=== PATIENT | female | born 1935 | race Caucasian/White ===

== ENCOUNTER 2017-04-08 11:52 | Inpatient (IN) | payer MEDICARE, OTHER ==
[2017-04-08] MEDS ORDERED: ONDANSETRON 4 MG INJ ×2 (12:08→12:46)
[2017-04-08] MEDS ORDERED: morphine 4 MG/ML VIAL (12:09)
[2017-04-08 12:12] LABS: ADD MAN DIFF? NO
[2017-04-08] MEDS: morphine 4 MG/ML VIAL IV (12:14)
[2017-04-08] MEDS: ONDANSETRON 4 MG INJ IV (12:14)
[2017-04-08 12:17] LABS: WHITE BLOOD COUNT 6.6 10^3/ul (4.8-10.8)
[2017-04-08 12:17] LABS: BASOPHILS % 0.5 % (0.0-2.0); EOSINOPHILS # 0.1 10^3/ul (0.0-0.5); EOSINOPHILS % 1.4 % (0.0-7.0); HEMOGLOBIN 13.3 g/dl (12.0-16.0); LYMPHOCYTES # 3.9 10^3/ul (0.8-2.9); LYMPHOCYTES % 58.6 % (15.0-51.0); MEAN CORPUSCULAR HEMOGLOBIN 30.3 pg (29.0-33.0); MEAN CORPUSCULAR VOLUME 86.6 fl (82.0-101.0); MEAN PLATELET VOLUME 10.2 fl (7.4-10.4); MONOCYTE # 0.7 10^3/ul (0.3-0.9); MONOCYTES % 9.9 % (0.0-11.0); NEUTROPHILS % 29.4 % (39.0-77.0); PLATELET COUNT 202 10^3/UL (140-415); RED BLOOD COUNT 4.39 10^6/ul (4.20-5.40); RED CELL DISTRIBUTION WIDTH 12.5 % (11.5-14.5)
[2017-04-08] MEDS ORDERED: NITROGLYCERIN (IC) 100 MCG/ML INJ (12:31)
[2017-04-08] MEDS ORDERED: IODIXANOL LOCM 50 ML BTL (12:31)
[2017-04-08] MEDS ORDERED: HEPARIN 1000 UNITS/ML 10 ML INJ (12:31)
[2017-04-08] MEDS ORDERED: VERAPAMIL 5 MG INJ ×2 (12:31→13:33)
[2017-04-08 12:35] LABS: ANION GAP 16 (8-16); BLOOD UREA NITROGEN 23 mg/dl (7-20); CALCIUM 9.3 mg/dl (8.4-10.2); CARBON DIOXIDE 22 mmol/L (21-31); CHLORIDE 109 mmol/L (97-110); CREATININE 1.34 mg/dl (0.44-1.00); GLUCOSE 149 mg/dl (70-220); SODIUM 143 mmol/L (135-144)
[2017-04-08] MEDS ORDERED: DIPHENHYDRAMINE 50 MG INJ (12:38)
[2017-04-08] MEDS ORDERED: METHYLPREDNISOLONE 125 MG INJ (12:38)
[2017-04-08 12:50] LABS: TROPONIN-I < 0.012 ng/ml (0.00-0.12)
[2017-04-08] MEDS ORDERED: FENTAnyl 50 MCG/ML VIAL (12:53)
[2017-04-08] MEDS ORDERED: MIDAZOLAM 1 MG/ML 2 ML INJ (12:53)
[2017-04-08] MEDS ORDERED: IODIXANOL LOCM 100 ML BTL ×4 (12:54→14:03)
[2017-04-08] MEDS ORDERED: ONDANSETRON 4 MG INJ IV ×2 (13:30→17:30)
[2017-04-08] MEDS ORDERED: ACETAMINOPHEN 325 MG TAB PO (13:30)
[2017-04-08] MEDS ORDERED: EPTIFIBATIDE 100 ML IV (13:40)
[2017-04-08] MEDS ORDERED: EPTIFIBATIDE 10 ML (13:40)
[2017-04-08 14:14] LABS: INR 0.97
[2017-04-08 14:15] LABS: PARTIAL THROMBOPLASTIN TIME 25.9 Sec (25.0-35.0)
[2017-04-08] MEDS ORDERED: ALTEPLASE (CATHFLO) 2 MG INJ CATHETER (14:30)
[2017-04-08] MEDS ORDERED: TICAGRELOR 90 MG TABLET (14:32)
[2017-04-08] MEDS: EPTIFIBATIDE 100 ML IV ×2 (15:37→17:37)
[2017-04-08] MEDS: HEPARIN 1000 UNITS/ML 10 ML INJ IV (16:00)
[2017-04-08] MEDS: SOD CHLORIDE 0.9% 1,000 ML IV (16:31)
[2017-04-08] MEDS: morphine 2 MG INJ IV ×2 (17:39→23:59)
[2017-04-08 18:36] LABS: ADD MAN DIFF? NO
[2017-04-08 18:39] LABS: BASOPHILS % 0.1 % (0.0-2.0); EOSINOPHILS % 0.1 % (0.0-7.0); HEMATOCRIT 39.2 % (37.0-47.0); LYMPHOCYTES # 0.6 10^3/ul (0.8-2.9); LYMPHOCYTES % 7.2 % (15.0-51.0); MEAN CORPUSCULAR HEMOGLOBIN 29.7 pg (29.0-33.0); MEAN CORPUSCULAR HGB CONC 33.2 g/dl (32.0-37.0); MEAN CORPUSCULAR VOLUME 89.7 fl (82.0-101.0); MEAN PLATELET VOLUME 10.5 fl (7.4-10.4); MONOCYTE # 0.1 10^3/ul (0.3-0.9); MONOCYTES % 1.1 % (0.0-11.0); PLATELET COUNT 201 10^3/UL (140-415); RED BLOOD COUNT 4.37 10^6/ul (4.20-5.40)
[2017-04-08 18:39] LABS: WHITE BLOOD COUNT 8.8 10^3/ul (4.8-10.8)
[2017-04-08 19:55] LABS: CK INDEX 6.2; CREATINE KINASE 3104 IU/L (23-200)
[2017-04-08] MEDS: ATORVASTATIN 40 MG TAB PO (20:34)
[2017-04-08] MEDS: TICAGRELOR 90 MG TABLET PO ×2 (20:35→21:01)
[2017-04-08] MEDS: METOPROLOL 25 MG TAB PO (20:35)
[2017-04-09 01:55] LABS: CK INDEX 7.6; CREATINE KINASE 3154 IU/L (23-200)
[2017-04-09 05:12] LABS: ADD MAN DIFF? NO
[2017-04-09 05:23] LABS: WHITE BLOOD COUNT 11.8 10^3/ul (4.8-10.8)
[2017-04-09 05:23] LABS: BASOPHILS % 0.1 % (0.0-2.0); HEMATOCRIT 36.2 % (37.0-47.0); HEMOGLOBIN 11.7 g/dl (12.0-16.0); LYMPHOCYTES # 0.6 10^3/ul (0.8-2.9); LYMPHOCYTES % 5.3 % (15.0-51.0); MEAN CORPUSCULAR HEMOGLOBIN 29.1 pg (29.0-33.0); MEAN CORPUSCULAR HGB CONC 32.3 g/dl (32.0-37.0); MEAN PLATELET VOLUME 10.8 fl (7.4-10.4); MONOCYTE # 0.4 10^3/ul (0.3-0.9); MONOCYTES % 3.2 % (0.0-11.0); NEUTROPHIL # 10.8 10^3/ul (1.6-7.5); PLATELET COUNT 203 10^3/UL (140-415); RED BLOOD COUNT 4.02 10^6/ul (4.20-5.40); RED CELL DISTRIBUTION WIDTH 13.3 % (11.5-14.5)
[2017-04-09 05:42] LABS: ANION GAP 19 (8-16); BLOOD UREA NITROGEN 22 mg/dl (7-20); CALCIUM 8.8 mg/dl (8.4-10.2); CARBON DIOXIDE 20 mmol/L (21-31); CHLORIDE 111 mmol/L (97-110); CHOL/HDL RATIO 5.7 RATIO; CHOLESTEROL 218 mg/dl (100-200); CREATININE 1.35 mg/dl (0.44-1.00); GLUCOSE 168 mg/dl (70-220); HDL CHOLESTEROL 38 mg/dl (33-92); LDL CHOLESTEROL,CALCULATED 146 mg/dl; POTASSIUM 4.7 mmol/L (3.5-5.1); SODIUM 145 mmol/L (135-144); TRIGLYCERIDES 170 mg/dl (0-149)
[2017-04-09] MEDS: morphine 2 MG INJ IV ×4 (05:53→23:41)
[2017-04-09] MEDS: FUROSEMIDE 40 MG TAB PO (08:19)
[2017-04-09] MEDS: METOPROLOL 25 MG TAB PO ×2 (08:20→21:00)
[2017-04-09] MEDS: TICAGRELOR 90 MG TABLET PO ×2 (08:42→19:57)
[2017-04-09] MEDS: LEVOTHYROXINE 88 MCG TAB PO (09:20)
[2017-04-09 12:08] LABS: HEMOGLOBIN A1C 5.7 % (0-5.9)
[2017-04-09] MEDS: ATORVASTATIN 40 MG TAB PO (19:52)
[2017-04-09] MEDS: OXYCODONE/ACETAMINOPHEN (5/325) TAB PO (22:20)
[2017-04-10] MEDS: morphine 2 MG INJ IV (04:15)
[2017-04-10] MEDS: OXYCODONE/ACETAMINOPHEN (5/325) TAB PO ×3 (04:15→21:14)
[2017-04-10] MEDS: LEVOTHYROXINE 88 MCG TAB PO (05:28)
[2017-04-10 06:46] LABS: ADD MAN DIFF? NO
[2017-04-10 07:24] LABS: BASOPHILS % 0.1 % (0.0-2.0); EOSINOPHILS % 0.1 % (0.0-7.0); HEMATOCRIT 33.7 % (37.0-47.0); HEMOGLOBIN 11.2 g/dl (12.0-16.0); LYMPHOCYTES # 1.1 10^3/ul (0.8-2.9); MEAN CORPUSCULAR HEMOGLOBIN 29.9 pg (29.0-33.0); MEAN CORPUSCULAR HGB CONC 33.2 g/dl (32.0-37.0); MEAN CORPUSCULAR VOLUME 89.9 fl (82.0-101.0); MEAN PLATELET VOLUME 11.4 fl (7.4-10.4); MONOCYTE # 1.4 10^3/ul (0.3-0.9); MONOCYTES % 7.8 % (0.0-11.0); NEUTROPHIL # 15.5 10^3/ul (1.6-7.5); NEUTROPHILS % 85.3 % (39.0-77.0); PLATELET COUNT 188 10^3/UL (140-415); RED BLOOD COUNT 3.75 10^6/ul (4.20-5.40); RED CELL DISTRIBUTION WIDTH 13.6 % (11.5-14.5)
[2017-04-10 07:24] LABS: WHITE BLOOD COUNT 18.1 10^3/ul (4.8-10.8)
[2017-04-10 07:45] LABS: ANION GAP 16 (8-16); BLOOD UREA NITROGEN 28 mg/dl (7-20); CARBON DIOXIDE 24 mmol/L (21-31); CHLORIDE 111 mmol/L (97-110); CREATININE 1.51 mg/dl (0.44-1.00); GLUCOSE 139 mg/dl (70-220); MAGNESIUM 1.9 mg/dl (1.7-2.5); PHOSPHORUS 2.9 mg/dl (2.5-4.9); POTASSIUM 4.2 mmol/L (3.5-5.1); SODIUM 147 mmol/L (135-144)
[2017-04-10] MEDS: FUROSEMIDE 40 MG TAB PO (08:36)
[2017-04-10] MEDS: FAMOTIDINE 20 MG TAB PO ×2 (08:37→21:09)
[2017-04-10] MEDS: VALSARTAN 80 MG TAB PO (08:38)
[2017-04-10] MEDS: METOPROLOL (XL) 25 MG TAB PO (08:39)
[2017-04-10] MEDS: TICAGRELOR 90 MG TABLET PO ×2 (08:46→21:11)
[2017-04-10] MEDS: FUROSEMIDE 40 MG INJ IV (16:14)
[2017-04-10] MEDS ORDERED: IODIXANOL LOCM 100 ML BTL (16:34)
[2017-04-10] MEDS ORDERED: EPTIFIBATIDE 10 ML (16:35)
[2017-04-10 17:15] LABS: AADO2 Arterial 66.5 mmHg (7.0-24.0); Arterial Blood Gas Oxygen Sat 88.9 mmHG (95.0-100.0); Arterial COHb 0.3 % (0.0-3.0); Arterial Fraction of Oxyhgb 88.5 % (93.0-99.0); Arterial HCO3 20.1 mmol/L (22.0-26.0); Arterial MetHb 0.1 % (0.0-1.5); Arterial Total Hemglobin 11.9 g/dl (12.0-18.0); Arterial pCO2 26.8 mmhg (35-45); MODE ROOM AIR; Site Right Brachial
[2017-04-10] MEDS: ATORVASTATIN 40 MG TAB PO (21:09)
[2017-04-10 22:43] LABS: CREATININE,URINE RANDOM 144.29 mg/dl (20-320)
[2017-04-10 22:45] LABS: SODIUM,URINE RANDOM < 13 mmol/L (30-90)
[2017-04-10 23:20] LABS: ADD UMIC YES; UR ASCORBIC ACID NEGATIVE (NEGATIVE); UR BACTERIA FEW /HPF (NONE SEEN); UR BILIRUBIN (Dip) NEGATIVE (NEGATIVE); UR BLOOD (Dip) NEGATIVE (NEGATIVE); UR CLARITY SLIGHTLY CLOUDY (CLEAR); UR COLOR YELLOW (YELLOW); UR GLUCOSE (Dip) NEGATIVE (NEGATIVE); UR KETONES (Dip) NEGATIVE (NEGATIVE); UR LEUKOCYTE ESTERASE (Dip) 3+ Leu/ul (NEGATIVE); UR NITRITE (Dip) NEGATIVE (NEGATIVE); UR RBC 2 /HPF (0-5); UR SPECIFIC GRAVITY (Dip) 1.021 (1.003-1.030); UR SQUAMOUS EPITHELIAL CELL FEW /HPF (FEW); UR TOTAL PROTEIN (Dip) NEGATIVE (NEGATIVE); UR UROBILINOGEN (Dip) NEGATIVE (NEGATIVE); UR WBC 22 /HPF (0-5)
[2017-04-11] MEDS: OXYCODONE/ACETAMINOPHEN (5/325) TAB PO ×2 (02:55→19:54)
[2017-04-11] MEDS: LEVOTHYROXINE 88 MCG TAB PO (05:14)
[2017-04-11 07:08] LABS: ADD MAN DIFF? NO
[2017-04-11 07:15] LABS: BASOPHILS % 0.2 % (0.0-2.0); EOSINOPHILS % 0.1 % (0.0-7.0); HEMOGLOBIN 10.3 g/dl (12.0-16.0); LYMPHOCYTES # 1.1 10^3/ul (0.8-2.9); LYMPHOCYTES % 9.1 % (15.0-51.0); MEAN CORPUSCULAR HEMOGLOBIN 29.9 pg (29.0-33.0); MEAN CORPUSCULAR HGB CONC 33.2 g/dl (32.0-37.0); MEAN CORPUSCULAR VOLUME 90.1 fl (82.0-101.0); MEAN PLATELET VOLUME 11.2 fl (7.4-10.4); NEUTROPHIL # 10.2 10^3/ul (1.6-7.5); PLATELET COUNT 158 10^3/UL (140-415); RED BLOOD COUNT 3.44 10^6/ul (4.20-5.40); RED CELL DISTRIBUTION WIDTH 13.4 % (11.5-14.5)
[2017-04-11 07:15] LABS: WHITE BLOOD COUNT 12.5 10^3/ul (4.8-10.8)
[2017-04-11 07:34] LABS: ALANINE AMINOTRANSFERASE 86 IU/L (13-69); ALBUMIN 3.1 g/dl (3.3-4.9); ALBUMIN/GLOBULIN RATIO 1.14; ALKALINE PHOSPHATASE 57 IU/L (42-121); ANION GAP 14 (8-16); ASPARTATE AMINO TRANSFERASE 205 IU/L (15-46); BILIRUBIN,INDIRECT 1.3 mg/dl (0-1.1); BILIRUBIN,TOTAL 1.3 mg/dl (0.2-1.3); BLOOD UREA NITROGEN 33 mg/dl (7-20); CALCIUM 8.8 mg/dl (8.4-10.2); CARBON DIOXIDE 25 mmol/L (21-31); CHLORIDE 111 mmol/L (97-110); CREATININE 1.55 mg/dl (0.44-1.00); GLUCOSE 114 mg/dl (70-220); SODIUM 146 mmol/L (135-144); TOTAL PROTEIN 5.8 g/dl (6.1-8.1)
[2017-04-11 07:36] LABS: PHOSPHORUS 3.1 mg/dl (2.5-4.9)
[2017-04-11] MEDS: FAMOTIDINE 20 MG TAB PO ×2 (09:15→20:14)
[2017-04-11] MEDS: TICAGRELOR 90 MG TABLET PO ×2 (09:22→20:16)
[2017-04-11] MEDS: METOPROLOL (XL) 25 MG TAB PO (11:22)
[2017-04-11] MEDS: FUROSEMIDE 40 MG TAB PO (11:22)
[2017-04-11] MEDS ORDERED: FUROSEMIDE 40 MG INJ IV (13:30)
[2017-04-11] MEDS ORDERED: PIPER-TAZO 3.375 GM IV (PMX) 100 ML IVPB (18:00)
[2017-04-11] MEDS: INFLUENZA VIRUS VACCINE 0.5 ML SYG IM* (20:13)
[2017-04-11] MEDS: MEROPENEM 1 GM/50ML(PMX) 50 ML IVPB ×2 (20:14→22:04)
[2017-04-11] MEDS: ATORVASTATIN 40 MG TAB PO (20:14)
[2017-04-11] MEDS: CEFEPIME 1GM/50 ML IVPB (22:03)
[2017-04-12] MEDS: OXYCODONE/ACETAMINOPHEN (5/325) TAB PO ×2 (04:04→21:32)
[2017-04-12] MEDS: ALBUTEROL 0.083% (NEB) 2.5 MG/3 ML AMP HHN (05:40)
[2017-04-12] MEDS: LEVOTHYROXINE 88 MCG TAB PO (06:16)
[2017-04-12 06:44] LABS: ADD MAN DIFF? NO
[2017-04-12 06:57] LABS: BASOPHILS % 0.2 % (0.0-2.0); EOSINOPHILS # 0.1 10^3/ul (0.0-0.5); EOSINOPHILS % 0.7 % (0.0-7.0); HEMATOCRIT 31.9 % (37.0-47.0); HEMOGLOBIN 10.4 g/dl (12.0-16.0); LYMPHOCYTES # 1.5 10^3/ul (0.8-2.9); LYMPHOCYTES % 14.1 % (15.0-51.0); MEAN CORPUSCULAR HEMOGLOBIN 29.5 pg (29.0-33.0); MEAN CORPUSCULAR HGB CONC 32.6 g/dl (32.0-37.0); MEAN CORPUSCULAR VOLUME 90.6 fl (82.0-101.0); MEAN PLATELET VOLUME 11.5 fl (7.4-10.4); MONOCYTE # 0.9 10^3/ul (0.3-0.9); MONOCYTES % 8.2 % (0.0-11.0); NEUTROPHIL # 8.1 10^3/ul (1.6-7.5); NEUTROPHILS % 76.2 % (39.0-77.0); PLATELET COUNT 180 10^3/UL (140-415); RED BLOOD COUNT 3.52 10^6/ul (4.20-5.40); RED CELL DISTRIBUTION WIDTH 13.4 % (11.5-14.5)
[2017-04-12 06:57] LABS: WHITE BLOOD COUNT 10.6 10^3/ul (4.8-10.8)
[2017-04-12 07:19] LABS: ALANINE AMINOTRANSFERASE 68 IU/L (13-69); ALBUMIN 3.4 g/dl (3.3-4.9); ALBUMIN/GLOBULIN RATIO 1.13; ALKALINE PHOSPHATASE 60 IU/L (42-121); ANION GAP 16 (8-16); ASPARTATE AMINO TRANSFERASE 115 IU/L (15-46); BLOOD UREA NITROGEN 29 mg/dl (7-20); CALCIUM 8.8 mg/dl (8.4-10.2); CARBON DIOXIDE 26 mmol/L (21-31); CHLORIDE 107 mmol/L (97-110); CREATININE 1.61 mg/dl (0.44-1.00); GLUCOSE 158 mg/dl (70-220); POTASSIUM 3.4 mmol/L (3.5-5.1); SODIUM 146 mmol/L (135-144); TOTAL PROTEIN 6.4 g/dl (6.1-8.1)
[2017-04-12 07:20] LABS: PHOSPHORUS 3.2 mg/dl (2.5-4.9)
[2017-04-12 07:20] LABS: MAGNESIUM 2.1 mg/dl (1.7-2.5)
[2017-04-12] MEDS: POTASSIUM CHLORIDE (SR) 20 MEQ TAB PO (08:48)
[2017-04-12] MEDS: MEROPENEM 1 GM/50ML(PMX) 50 ML IVPB ×2 (08:48→21:32)
[2017-04-12] MEDS: FAMOTIDINE 20 MG TAB PO ×2 (08:48→21:32)
[2017-04-12] MEDS: METOPROLOL (XL) 25 MG TAB PO (09:00)
[2017-04-12] MEDS: TICAGRELOR 90 MG TABLET PO ×2 (09:08→21:39)
[2017-04-12] MEDS: LEVALBUTEROL (NEB) 0.63 MG/3 ML AMP HHN ×3 (10:08→23:51)
[2017-04-12] MEDS ORDERED: VANCOMYCIN IV PER PHARMACY XX (15:00)
[2017-04-12] MEDS: VANCOMYCIN 1.25 GM in SOD CHLORIDE 0.9% 250 ML IVPB (16:13)
[2017-04-12] MEDS: ATORVASTATIN 40 MG TAB PO (21:32)
[2017-04-13] MEDS: FUROSEMIDE 20 MG INJ IV (01:06)
[2017-04-13] MEDS: LEVOTHYROXINE 88 MCG TAB PO (06:26)
[2017-04-13 08:25] LABS: ADD MAN DIFF? NO
[2017-04-13 08:38] LABS: BASOPHILS % 0.4 % (0.0-2.0); EOSINOPHILS # 0.2 10^3/ul (0.0-0.5); HEMATOCRIT 33.2 % (37.0-47.0); HEMOGLOBIN 10.8 g/dl (12.0-16.0); LYMPHOCYTES # 0.9 10^3/ul (0.8-2.9); LYMPHOCYTES % 10.9 % (15.0-51.0); MEAN CORPUSCULAR HEMOGLOBIN 29.7 pg (29.0-33.0); MEAN CORPUSCULAR HGB CONC 32.5 g/dl (32.0-37.0); MEAN CORPUSCULAR VOLUME 91.2 fl (82.0-101.0); MEAN PLATELET VOLUME 11.5 fl (7.4-10.4); MONOCYTES % 11.7 % (0.0-11.0); NEUTROPHIL # 6.2 10^3/ul (1.6-7.5); NEUTROPHILS % 74.3 % (39.0-77.0); PLATELET COUNT 223 10^3/UL (140-415); RED BLOOD COUNT 3.64 10^6/ul (4.20-5.40); RED CELL DISTRIBUTION WIDTH 13.4 % (11.5-14.5)
[2017-04-13 08:38] LABS: WHITE BLOOD COUNT 8.3 10^3/ul (4.8-10.8)
[2017-04-13] MEDS: LEVALBUTEROL (NEB) 0.63 MG/3 ML AMP HHN ×3 (08:49→23:22)
[2017-04-13 08:52] LABS: ALANINE AMINOTRANSFERASE 55 IU/L (13-69); ALBUMIN 3.3 g/dl (3.3-4.9); ALBUMIN/GLOBULIN RATIO 1.32; ALKALINE PHOSPHATASE 66 IU/L (42-121); ANION GAP 13 (8-16); ASPARTATE AMINO TRANSFERASE 73 IU/L (15-46); BILIRUBIN,INDIRECT 0.8 mg/dl (0-1.1); BILIRUBIN,TOTAL 0.8 mg/dl (0.2-1.3); BLOOD UREA NITROGEN 25 mg/dl (7-20); CALCIUM 8.8 mg/dl (8.4-10.2); CARBON DIOXIDE 29 mmol/L (21-31); CHLORIDE 108 mmol/L (97-110); CREATININE 1.45 mg/dl (0.44-1.00); GLUCOSE 103 mg/dl (70-220); POTASSIUM 3.9 mmol/L (3.5-5.1); SODIUM 146 mmol/L (135-144); TOTAL PROTEIN 5.8 g/dl (6.1-8.1)
[2017-04-13 09:02] LABS: ANION GAP 12 (8-16); BLOOD UREA NITROGEN 26 mg/dl (7-20); CALCIUM 8.8 mg/dl (8.4-10.2); CARBON DIOXIDE 30 mmol/L (21-31); CHLORIDE 108 mmol/L (97-110); CREATININE 1.51 mg/dl (0.44-1.00); GLUCOSE 106 mg/dl (70-220); MAGNESIUM 2.2 mg/dl (1.7-2.5); PHOSPHORUS 3.5 mg/dl (2.5-4.9); POTASSIUM 3.7 mmol/L (3.5-5.1); SODIUM 146 mmol/L (135-144)
[2017-04-13] MEDS: FUROSEMIDE 40 MG TAB PO (09:36)
[2017-04-13] MEDS: METOPROLOL (XL) 25 MG TAB PO (09:36)
[2017-04-13] MEDS: FAMOTIDINE 20 MG TAB PO ×2 (09:36→21:45)
[2017-04-13] MEDS: MEROPENEM 1 GM/50ML(PMX) 50 ML IVPB ×2 (09:37→21:46)
[2017-04-13] MEDS: OXYCODONE/ACETAMINOPHEN (5/325) TAB PO ×2 (09:53→21:46)
[2017-04-13] MEDS: TICAGRELOR 90 MG TABLET PO ×2 (09:57→21:50)
[2017-04-13] MEDS: ATORVASTATIN 40 MG TAB PO (21:45)
[2017-04-14] MEDS: LEVALBUTEROL (NEB) 0.63 MG/3 ML AMP HHN ×4 (05:56→23:03)
[2017-04-14] MEDS: VANCOMYCIN 1 GM 250 ML IVPB (06:02)
[2017-04-14] MEDS: LEVOTHYROXINE 88 MCG TAB PO (06:16)
[2017-04-14] MEDS: DIPHENHYDRAMINE 50 MG CAP PO (06:16)
[2017-04-14 08:26] LABS: ANION GAP 12 (8-16); BLOOD UREA NITROGEN 24 mg/dl (7-20); CALCIUM 8.5 mg/dl (8.4-10.2); CARBON DIOXIDE 28 mmol/L (21-31); CHLORIDE 109 mmol/L (97-110); CREATININE 1.42 mg/dl (0.44-1.00); GLUCOSE 114 mg/dl (70-220); MAGNESIUM 2.1 mg/dl (1.7-2.5); POTASSIUM 3.3 mmol/L (3.5-5.1); SODIUM 146 mmol/L (135-144)
[2017-04-14] MEDS: METOPROLOL (XL) 25 MG TAB PO (09:00)
[2017-04-14] MEDS: POTASSIUM CHLORIDE (SR) 20 MEQ TAB PO (09:13)
[2017-04-14] MEDS: FAMOTIDINE 20 MG TAB PO (09:13)
[2017-04-14] MEDS: FUROSEMIDE 40 MG TAB PO (09:14)
[2017-04-14] MEDS: TICAGRELOR 90 MG TABLET PO ×2 (09:19→21:22)
[2017-04-14] MEDS: MEROPENEM 1 GM/50ML(PMX) 50 ML IVPB (09:20)
[2017-04-14] MEDS: FUROSEMIDE 40 MG INJ IV (18:43)
[2017-04-14] MEDS: OXYCODONE/ACETAMINOPHEN (5/325) TAB PO (21:16)
[2017-04-14] MEDS: CEFEPIME 2GM/50 ML IVPB (21:16)
[2017-04-14] MEDS: ATORVASTATIN 40 MG TAB PO (21:16)
[2017-04-15] MEDS: OXYCODONE/ACETAMINOPHEN (5/325) TAB PO (04:06)
[2017-04-15] MEDS: LEVOTHYROXINE 88 MCG TAB PO (06:30)
[2017-04-15] MEDS: FUROSEMIDE 40 MG INJ IV (06:30)
[2017-04-15] MEDS: PANTOPRAZOLE (EC) 40 MG TAB PO (06:31)
[2017-04-15 08:19] LABS: ADD MAN DIFF? NO
[2017-04-15 08:24] LABS: BASOPHIL # 0.1 10^3/ul (0.0-0.1); BASOPHILS % 0.7 % (0.0-2.0); EOSINOPHILS # 0.4 10^3/ul (0.0-0.5); HEMATOCRIT 34.7 % (37.0-47.0); HEMOGLOBIN 11.4 g/dl (12.0-16.0); LYMPHOCYTES # 1.5 10^3/ul (0.8-2.9); LYMPHOCYTES % 18.6 % (15.0-51.0); MEAN CORPUSCULAR HEMOGLOBIN 29.3 pg (29.0-33.0); MEAN CORPUSCULAR HGB CONC 32.9 g/dl (32.0-37.0); MEAN CORPUSCULAR VOLUME 89.2 fl (82.0-101.0); MEAN PLATELET VOLUME 11.5 fl (7.4-10.4); MONOCYTE # 0.9 10^3/ul (0.3-0.9); MONOCYTES % 11.2 % (0.0-11.0); NEUTROPHIL # 5.1 10^3/ul (1.6-7.5); NEUTROPHILS % 63.9 % (39.0-77.0); PLATELET COUNT 278 10^3/UL (140-415); RED BLOOD COUNT 3.89 10^6/ul (4.20-5.40); RED CELL DISTRIBUTION WIDTH 13.5 % (11.5-14.5)
[2017-04-15] MEDS: METOPROLOL (XL) 25 MG TAB PO (08:28)
[2017-04-15] MEDS: TICAGRELOR 90 MG TABLET PO (08:40)
[2017-04-15 09:05] LABS: ALANINE AMINOTRANSFERASE 47 IU/L (13-69); ALBUMIN 3.7 g/dl (3.3-4.9); ALBUMIN/GLOBULIN RATIO 1.23; ALKALINE PHOSPHATASE 74 IU/L (42-121); ANION GAP 16 (8-16); ASPARTATE AMINO TRANSFERASE 52 IU/L (15-46); BILIRUBIN,INDIRECT 0.7 mg/dl (0-1.1); BILIRUBIN,TOTAL 0.7 mg/dl (0.2-1.3); BLOOD UREA NITROGEN 21 mg/dl (7-20); CARBON DIOXIDE 29 mmol/L (21-31); CHLORIDE 104 mmol/L (97-110); CREATININE 1.42 mg/dl (0.44-1.00); GLUCOSE 132 mg/dl (70-220); POTASSIUM 3.2 mmol/L (3.5-5.1); SODIUM 146 mmol/L (135-144); TOTAL PROTEIN 6.7 g/dl (6.1-8.1)
[2017-04-15] MEDS: LEVALBUTEROL (NEB) 0.63 MG/3 ML AMP HHN (09:31)
[2017-04-15] MEDS: POTASSIUM CHLORIDE (SR) 20 MEQ TAB PO (13:21)
== END 2017-04-15 15:36 | disposition home or self-care (01) | DRG 246 ==
LOC: TEL 04-09 06:17 → E/R 11:52 → CCL 12:33 → SDS 12:33 → CCL 13:11 → REC 13:11 → ICU 15:52
PROC: 027036Z Dilation of Coronary Artery, One Artery with Three Drug-eluting Intraluminal Devices, Percutaneous Approach (ICD-10-PCS; principal; 2017-04-08 12:35)
PROC: 02C03ZZ Extirpation of Matter from Coronary Artery, One Artery, Percutaneous Approach (ICD-10-PCS; 2017-04-08 12:35)
PROC: 3E033PZ Introduction of Platelet Inhibitor into Peripheral Vein, Percutaneous Approach (ICD-10-PCS; 2017-04-08 12:35)
PROC: 4A023N7 Measurement of Cardiac Sampling and Pressure, Left Heart, Percutaneous Approach (ICD-10-PCS; 2017-04-08 12:35)
PROC: B211YZZ Fluoroscopy of Multiple Coronary Arteries using Other Contrast (ICD-10-PCS; 2017-04-08 12:35)
PROC: 3E03317 Introduction of Other Thrombolytic into Peripheral Vein, Percutaneous Approach (ICD-10-PCS; 2017-04-08 12:35)
DX: I21.09 ST elevation (STEMI) myocardial infarction involving other coronary artery of anterior wall (principal); J18.9 Pneumonia, unspecified organism; J96.01 Acute respiratory failure with hypoxia; I50.21 Acute systolic (congestive) heart failure; A41.9 Sepsis, unspecified organism; N17.9 Acute kidney failure, unspecified; E87.0 Hyperosmolality and hypernatremia; I11.0 Hypertensive heart disease with heart failure; D64.9 Anemia, unspecified; Y95 Nosocomial condition; E78.5 Hyperlipidemia, unspecified; I25.10 Atherosclerotic heart disease of native coronary artery without angina pectoris; E03.9 Hypothyroidism, unspecified; I25.5 Ischemic cardiomyopathy; E87.6 Hypokalemia; L50.0 Allergic urticaria; T39.015A Adverse effect of aspirin, initial encounter; T46.6X5A Adverse effect of antihyperlipidemic and antiarteriosclerotic drugs, initial encounter; Y92.019 Unspecified place in single-family (private) house as the place of occurrence of the external cause; Z79.02 Long term (current) use of antithrombotics/antiplatelets; Z79.82 Long term (current) use of aspirin; Z95.0 Presence of cardiac pacemaker; Z95.5 Presence of coronary angioplasty implant and graft
CPT/HCPCS: 36415; 36600; 71045; 71046; 71250; 76775; 80048; 80053; 80061; 81001; 82550; 82553; 82803; 83036; 83735; 84100; 84155; 84300; 84484; 85025; 85610; 85730; 87081; 89190; 93005; 93306; 93458; 94640; 94664; 96374; 96375; 97162; 99291-25; J1940

== ENCOUNTER 2017-05-01 14:09 | Inpatient (IN) | payer MEDICARE, OTHER ==
[2017-05-01] MEDS: SOD CHLORIDE 0.9% 1,000 ML IV (14:27)
[2017-05-01] MEDS: morphine 4 MG/ML VIAL IV (14:27)
[2017-05-01] MEDS: ONDANSETRON 4 MG INJ IV (14:27)
[2017-05-01] MEDS: HYDROmorphONE 0.5 MG/0.5 ML SYG IV ×3 (15:04→22:40)
[2017-05-01 15:08] LABS: ADD MAN DIFF? NO
[2017-05-01 15:12] LABS: WHITE BLOOD COUNT 11.8 10^3/ul (4.8-10.8)
[2017-05-01 15:12] LABS: BASOPHIL # 0.1 10^3/ul (0.0-0.1); BASOPHILS % 0.5 % (0.0-2.0); EOSINOPHILS # 0.1 10^3/ul (0.0-0.5); EOSINOPHILS % 0.9 % (0.0-7.0); HEMATOCRIT 40.2 % (37.0-47.0); HEMOGLOBIN 13.9 g/dl (12.0-16.0); LYMPHOCYTES # 2.2 10^3/ul (0.8-2.9); LYMPHOCYTES % 18.6 % (15.0-51.0); MEAN CORPUSCULAR HEMOGLOBIN 29.8 pg (29.0-33.0); MEAN CORPUSCULAR HGB CONC 34.6 g/dl (32.0-37.0); MEAN CORPUSCULAR VOLUME 86.3 fl (82.0-101.0); MEAN PLATELET VOLUME 11.2 fl (7.4-10.4); MONOCYTE # 0.9 10^3/ul (0.3-0.9); MONOCYTES % 7.4 % (0.0-11.0); NEUTROPHIL # 8.4 10^3/ul (1.6-7.5); NEUTROPHILS % 71.7 % (39.0-77.0); PLATELET COUNT 291 10^3/UL (140-415); RED BLOOD COUNT 4.66 10^6/ul (4.20-5.40); RED CELL DISTRIBUTION WIDTH 13.7 % (11.5-14.5)
[2017-05-01 15:31] LABS: INR 1.07; PARTIAL THROMBOPLASTIN TIME 25.9 Sec (25.0-35.0); PT RATIO 1.1
[2017-05-01 15:40] LABS: ANION GAP 24 (8-16); BLOOD UREA NITROGEN 42 mg/dl (7-20); CALCIUM 9.8 mg/dl (8.4-10.2); CARBON DIOXIDE 19 mmol/L (21-31); CHLORIDE 104 mmol/L (97-110); CREATININE 2.85 mg/dl (0.44-1.00); GLUCOSE 122 mg/dl (70-220); SODIUM 144 mmol/L (135-144)
[2017-05-01 15:46] LABS: POTASSIUM 2.9 mmol/L (3.5-5.1)
[2017-05-01 15:52] LABS: TROPONIN-I 0.094 ng/ml (0.00-0.12)
[2017-05-01] MEDS: POTASSIUM CHLORIDE 100 ML IVPB (17:27)
[2017-05-01] MEDS ORDERED: ACETAMINOPHEN 325 MG TAB PO (17:30)
[2017-05-01] MEDS ORDERED: ONDANSETRON 4 MG INJ IV (17:30)
[2017-05-01 21:23] LABS: CREATINE KINASE 60 IU/L (23-200)
[2017-05-01 21:36] LABS: CK INDEX 2.5; CK-MB 1.49 ng/ml (0.0-2.4); TROPONIN-I 0.085 ng/ml (0.00-0.12)
[2017-05-02 02:44] LABS: CREATINE KINASE 64 IU/L (23-200)
[2017-05-02 02:57] LABS: CK INDEX 3.2; CK-MB 2.05 ng/ml (0.0-2.4); TROPONIN-I 0.085 ng/ml (0.00-0.12)
[2017-05-02] MEDS: FUROSEMIDE 40 MG TAB PO (06:00)
[2017-05-02] MEDS: LEVOTHYROXINE 88 MCG TAB PO (06:11)
[2017-05-02 06:57] LABS: ADD MAN DIFF? NO
[2017-05-02 07:00] LABS: WHITE BLOOD COUNT 7.2 10^3/ul (4.8-10.8)
[2017-05-02 07:00] LABS: BASOPHILS % 0.4 % (0.0-2.0); EOSINOPHILS # 0.1 10^3/ul (0.0-0.5); EOSINOPHILS % 1.9 % (0.0-7.0); HEMATOCRIT 34.1 % (37.0-47.0); HEMOGLOBIN 11.7 g/dl (12.0-16.0); LYMPHOCYTES # 1.6 10^3/ul (0.8-2.9); LYMPHOCYTES % 21.9 % (15.0-51.0); MEAN CORPUSCULAR HEMOGLOBIN 30.1 pg (29.0-33.0); MEAN CORPUSCULAR HGB CONC 34.3 g/dl (32.0-37.0); MEAN CORPUSCULAR VOLUME 87.7 fl (82.0-101.0); MEAN PLATELET VOLUME 11.3 fl (7.4-10.4); MONOCYTE # 0.7 10^3/ul (0.3-0.9); MONOCYTES % 9.8 % (0.0-11.0); NEUTROPHIL # 4.8 10^3/ul (1.6-7.5); NEUTROPHILS % 65.7 % (39.0-77.0); PLATELET COUNT 229 10^3/UL (140-415); RED BLOOD COUNT 3.89 10^6/ul (4.20-5.40); RED CELL DISTRIBUTION WIDTH 14.2 % (11.5-14.5)
[2017-05-02 07:27] LABS: INR 1.13; PROTIME 14.7 Sec (11.9-14.9); PT RATIO 1.1
[2017-05-02 07:28] LABS: PARTIAL THROMBOPLASTIN TIME 28.2 Sec (25.0-35.0)
[2017-05-02 07:32] LABS: ANION GAP 19 (8-16); BLOOD UREA NITROGEN 40 mg/dl (7-20); CALCIUM 9.4 mg/dl (8.4-10.2); CARBON DIOXIDE 26 mmol/L (21-31); CHLORIDE 103 mmol/L (97-110); CREATININE 2.26 mg/dl (0.44-1.00); GLUCOSE 149 mg/dl (70-220); SODIUM 145 mmol/L (135-144)
[2017-05-02 07:43] LABS: POTASSIUM 2.8 mmol/L (3.5-5.1)
[2017-05-02] MEDS: HYDROmorphONE 0.5 MG/0.5 ML SYG IV ×5 (07:44→21:40)
[2017-05-02] MEDS: ENOXAPARIN 30 MG/0.3 ML SYG SC (08:36)
[2017-05-02] MEDS: FAMOTIDINE 20 MG TAB PO (08:37)
[2017-05-02] MEDS: POTASSIUM CHLORIDE (SR) 20 MEQ TAB PO ×2 (08:38→18:06)
[2017-05-02] MEDS: VALSARTAN 80 MG TAB PO (08:38)
[2017-05-02] MEDS: METOPROLOL (XL) 25 MG TAB PO (08:38)
[2017-05-02] MEDS: ALBUMIN HUMAN 25% 100 ML IV ×2 (09:09→16:57)
[2017-05-02 16:38] LABS: ANION GAP 19 (8-16); BLOOD UREA NITROGEN 37 mg/dl (7-20); CALCIUM 9.4 mg/dl (8.4-10.2); CARBON DIOXIDE 26 mmol/L (21-31); CHLORIDE 102 mmol/L (97-110); CREATININE 2.07 mg/dl (0.44-1.00); GLUCOSE 123 mg/dl (70-220); SODIUM 144 mmol/L (135-144)
[2017-05-02] MEDS: TICAGRELOR 90 MG TABLET PO ×2 (18:08→21:40)
[2017-05-02] MEDS ORDERED: TICAGRELOR 90 MG TABLET PO (21:00)
[2017-05-02 23:01] LABS: ADD UMIC NO; UR ASCORBIC ACID NEGATIVE (NEGATIVE); UR BILIRUBIN (Dip) NEGATIVE (NEGATIVE); UR BLOOD (Dip) NEGATIVE (NEGATIVE); UR CLARITY CLEAR (CLEAR); UR COLOR YELLOW (YELLOW); UR GLUCOSE (Dip) NEGATIVE (NEGATIVE); UR KETONES (Dip) NEGATIVE (NEGATIVE); UR LEUKOCYTE ESTERASE (Dip) NEGATIVE Leu/ul (NEGATIVE); UR NITRITE (Dip) NEGATIVE (NEGATIVE); UR TOTAL PROTEIN (Dip) NEGATIVE (NEGATIVE); UR UROBILINOGEN (Dip) NEGATIVE (NEGATIVE)
[2017-05-02 23:13] LABS: CREATININE,URINE RANDOM 75.47 mg/dl (20-320)
[2017-05-02 23:13] LABS: SODIUM,URINE RANDOM 60 mmol/L (30-90)
[2017-05-03] MEDS: HYDROmorphONE 0.5 MG/0.5 ML SYG IV ×6 (01:26→23:18)
[2017-05-03] MEDS: ALBUMIN HUMAN 25% 100 ML IV (01:27)
[2017-05-03] MEDS: LEVOTHYROXINE 88 MCG TAB PO (06:52)
[2017-05-03 07:58] LABS: ADD MAN DIFF? NO
[2017-05-03 08:05] LABS: WHITE BLOOD COUNT 5.9 10^3/ul (4.8-10.8)
[2017-05-03 08:05] LABS: BASOPHILS % 0.5 % (0.0-2.0); EOSINOPHILS # 0.3 10^3/ul (0.0-0.5); EOSINOPHILS % 5.2 % (0.0-7.0); HEMATOCRIT 32.6 % (37.0-47.0); HEMOGLOBIN 10.9 g/dl (12.0-16.0); LYMPHOCYTES # 1.4 10^3/ul (0.8-2.9); LYMPHOCYTES % 23.7 % (15.0-51.0); MEAN CORPUSCULAR HEMOGLOBIN 29.8 pg (29.0-33.0); MEAN CORPUSCULAR HGB CONC 33.4 g/dl (32.0-37.0); MEAN CORPUSCULAR VOLUME 89.1 fl (82.0-101.0); MEAN PLATELET VOLUME 11.1 fl (7.4-10.4); MONOCYTE # 0.5 10^3/ul (0.3-0.9); MONOCYTES % 8.3 % (0.0-11.0); NEUTROPHIL # 3.7 10^3/ul (1.6-7.5); PLATELET COUNT 171 10^3/UL (140-415); RED BLOOD COUNT 3.66 10^6/ul (4.20-5.40); RED CELL DISTRIBUTION WIDTH 13.8 % (11.5-14.5)
[2017-05-03] MEDS: FAMOTIDINE 20 MG TAB PO (08:23)
[2017-05-03] MEDS: TICAGRELOR 90 MG TABLET PO (08:28)
[2017-05-03] MEDS: ENOXAPARIN 30 MG/0.3 ML SYG SC (08:29)
[2017-05-03] MEDS: METOPROLOL (XL) 25 MG TAB PO (08:30)
[2017-05-03 08:32] LABS: ANION GAP 20 (8-16); BLOOD UREA NITROGEN 31 mg/dl (7-20); CALCIUM 9.8 mg/dl (8.4-10.2); CARBON DIOXIDE 26 mmol/L (21-31); CHLORIDE 104 mmol/L (97-110); CREATININE 1.58 mg/dl (0.44-1.00); GLUCOSE 123 mg/dl (70-220); MAGNESIUM 1.9 mg/dl (1.7-2.5); PHOSPHORUS 2.9 mg/dl (2.5-4.9); POTASSIUM 3.3 mmol/L (3.5-5.1); SODIUM 147 mmol/L (135-144)
[2017-05-03] MEDS: POTASSIUM CHLORIDE (SR) 20 MEQ TAB PO (09:18)
[2017-05-03] MEDS ORDERED: EPTIFIBATIDE 100 ML IV (15:30)
[2017-05-03] MEDS: HYDROCODONE/APAP (5/325) TAB PO (19:52)
[2017-05-03] MEDS: EPTIFIBATIDE 100 ML IV (20:42)
[2017-05-04] MEDS: HYDROCODONE/APAP (5/325) TAB PO ×3 (02:05→22:48)
[2017-05-04] MEDS: LEVOTHYROXINE 88 MCG TAB PO (05:44)
[2017-05-04] MEDS: HYDROmorphONE 0.5 MG/0.5 ML SYG IV ×3 (06:16→13:23)
[2017-05-04 08:49] LABS: ADD MAN DIFF? NO
[2017-05-04 08:57] LABS: WHITE BLOOD COUNT 7.4 10^3/ul (4.8-10.8)
[2017-05-04 08:57] LABS: BASOPHIL # 0.1 10^3/ul (0.0-0.1); BASOPHILS % 0.7 % (0.0-2.0); EOSINOPHILS # 0.5 10^3/ul (0.0-0.5); EOSINOPHILS % 6.2 % (0.0-7.0); HEMATOCRIT 34.1 % (37.0-47.0); HEMOGLOBIN 11.4 g/dl (12.0-16.0); LYMPHOCYTES # 1.3 10^3/ul (0.8-2.9); LYMPHOCYTES % 17.7 % (15.0-51.0); MEAN CORPUSCULAR HEMOGLOBIN 29.4 pg (29.0-33.0); MEAN CORPUSCULAR HGB CONC 33.4 g/dl (32.0-37.0); MEAN CORPUSCULAR VOLUME 87.9 fl (82.0-101.0); MEAN PLATELET VOLUME 11.1 fl (7.4-10.4); MONOCYTE # 0.7 10^3/ul (0.3-0.9); MONOCYTES % 9.5 % (0.0-11.0); NEUTROPHIL # 4.8 10^3/ul (1.6-7.5); NEUTROPHILS % 65.4 % (39.0-77.0); PLATELET COUNT 182 10^3/UL (140-415); RED BLOOD COUNT 3.88 10^6/ul (4.20-5.40)
[2017-05-04 09:23] LABS: INR 1.11; PROTIME 14.5 Sec (11.9-14.9); PT RATIO 1.1
[2017-05-04 09:24] LABS: PARTIAL THROMBOPLASTIN TIME 31.6 Sec (25.0-35.0)
[2017-05-04] MEDS: FAMOTIDINE 20 MG TAB PO (09:47)
[2017-05-04] MEDS: METOPROLOL (XL) 25 MG TAB PO (09:48)
[2017-05-04] MEDS: ENOXAPARIN 30 MG/0.3 ML SYG SC (09:54)
[2017-05-04] MEDS: POTASSIUM CHLORIDE (SR) 20 MEQ TAB PO (09:55)
[2017-05-04] MEDS ORDERED: MONTELUKAST 10 MG TAB PO (16:00)
[2017-05-04] MEDS: ASPIRIN 81 MG TAB PO ×2 (16:38→17:32)
[2017-05-04 17:26] LABS: CREATININE, RANDOM URINE 91 mg/dL (20-320); MICROALBUMIN 0.4 mg/dL; MICROALBUMIN/CREATININE RATIO 4 (<30)
[2017-05-04] MEDS: DIPHENHYDRAMINE 50 MG CAP PO (18:21)
[2017-05-04] MEDS: EPTIFIBATIDE 100 ML IV (20:40)
[2017-05-04] MEDS: SALINE 0.65% 45 ML NAS SPRAY NASAL (21:00)
[2017-05-05] MEDS: HYDROmorphONE 0.5 MG/0.5 ML SYG IV ×4 (03:49→16:44)
[2017-05-05] MEDS: LEVOTHYROXINE 88 MCG TAB PO (05:30)
[2017-05-05 08:56] LABS: ADD MAN DIFF? NO
[2017-05-05 08:59] LABS: BASOPHILS % 0.7 % (0.0-2.0); EOSINOPHILS # 0.4 10^3/ul (0.0-0.5); EOSINOPHILS % 6.1 % (0.0-7.0); HEMATOCRIT 33.7 % (37.0-47.0); HEMOGLOBIN 11.4 g/dl (12.0-16.0); LYMPHOCYTES # 1.5 10^3/ul (0.8-2.9); LYMPHOCYTES % 25.5 % (15.0-51.0); MEAN CORPUSCULAR HEMOGLOBIN 29.8 pg (29.0-33.0); MEAN CORPUSCULAR HGB CONC 33.8 g/dl (32.0-37.0); MEAN PLATELET VOLUME 10.9 fl (7.4-10.4); MONOCYTE # 0.7 10^3/ul (0.3-0.9); MONOCYTES % 11.5 % (0.0-11.0); NEUTROPHIL # 3.3 10^3/ul (1.6-7.5); PLATELET COUNT 172 10^3/UL (140-415); RED BLOOD COUNT 3.83 10^6/ul (4.20-5.40); RED CELL DISTRIBUTION WIDTH 13.6 % (11.5-14.5)
[2017-05-05 08:59] LABS: WHITE BLOOD COUNT 5.9 10^3/ul (4.8-10.8)
[2017-05-05 09:25] LABS: ANION GAP 20 (8-16); BLOOD UREA NITROGEN 31 mg/dl (7-20); CALCIUM 9.8 mg/dl (8.4-10.2); CARBON DIOXIDE 24 mmol/L (21-31); CHLORIDE 106 mmol/L (97-110); CREATININE 1.33 mg/dl (0.44-1.00); GLUCOSE 112 mg/dl (70-220); MAGNESIUM 1.9 mg/dl (1.7-2.5); PHOSPHORUS 3.4 mg/dl (2.5-4.9); POTASSIUM 3.7 mmol/L (3.5-5.1); SODIUM 146 mmol/L (135-144)
[2017-05-05] MEDS: FAMOTIDINE 20 MG TAB PO (09:35)
[2017-05-05] MEDS: METOPROLOL (XL) 25 MG TAB PO (09:36)
[2017-05-05] MEDS: HYDROCODONE/APAP (5/325) TAB PO ×2 (09:36→16:43)
[2017-05-05] MEDS: ENOXAPARIN 30 MG/0.3 ML SYG SC (09:37)
[2017-05-05] MEDS: ASPIRIN 81 MG TAB PO (09:37)
[2017-05-05] MEDS: EPTIFIBATIDE 100 ML IV (20:00)
[2017-05-06] MEDS: HYDROmorphONE 0.5 MG/0.5 ML SYG IV ×6 (00:40→20:30)
[2017-05-06] MEDS ORDERED: ALBUMIN HUMAN 5% 250 ML INJ (07:00)
[2017-05-06] MEDS: LEVOTHYROXINE 88 MCG TAB PO (07:00)
[2017-05-06] MEDS ORDERED: SUCCINYLCHOLINE CHLORIDE 100 MG/5 ML SYG IV (07:00)
[2017-05-06] MEDS: ENOXAPARIN 30 MG/0.3 ML SYG SC (09:00)
[2017-05-06] MEDS: ASPIRIN 81 MG TAB PO (09:00)
[2017-05-06] MEDS: FAMOTIDINE 20 MG TAB PO (09:00)
[2017-05-06] MEDS: METOPROLOL (XL) 25 MG TAB PO (09:00)
[2017-05-06 09:06] LABS: ADD MAN DIFF? NO
[2017-05-06 09:13] LABS: BASOPHILS % 0.5 % (0.0-2.0); EOSINOPHILS # 0.6 10^3/ul (0.0-0.5); EOSINOPHILS % 9.8 % (0.0-7.0); HEMATOCRIT 31.7 % (37.0-47.0); HEMOGLOBIN 10.6 g/dl (12.0-16.0); LYMPHOCYTES # 1.6 10^3/ul (0.8-2.9); LYMPHOCYTES % 28.6 % (15.0-51.0); MEAN CORPUSCULAR HEMOGLOBIN 29.5 pg (29.0-33.0); MEAN CORPUSCULAR HGB CONC 33.4 g/dl (32.0-37.0); MEAN CORPUSCULAR VOLUME 88.3 fl (82.0-101.0); MEAN PLATELET VOLUME 11.6 fl (7.4-10.4); MONOCYTE # 0.8 10^3/ul (0.3-0.9); MONOCYTES % 13.2 % (0.0-11.0); NEUTROPHIL # 2.7 10^3/ul (1.6-7.5); NEUTROPHILS % 47.7 % (39.0-77.0); PLATELET COUNT 170 10^3/UL (140-415); RED BLOOD COUNT 3.59 10^6/ul (4.20-5.40); RED CELL DISTRIBUTION WIDTH 13.7 % (11.5-14.5)
[2017-05-06 09:13] LABS: WHITE BLOOD COUNT 5.7 10^3/ul (4.8-10.8)
[2017-05-06 09:32] LABS: ANION GAP 18 (8-16); BLOOD UREA NITROGEN 39 mg/dl (7-20); CALCIUM 9.6 mg/dl (8.4-10.2); CARBON DIOXIDE 27 mmol/L (21-31); CHLORIDE 104 mmol/L (97-110); CREATININE 1.49 mg/dl (0.44-1.00); GLUCOSE 99 mg/dl (70-220); MAGNESIUM 2.1 mg/dl (1.7-2.5); PHOSPHORUS 3.6 mg/dl (2.5-4.9); POTASSIUM 3.9 mmol/L (3.5-5.1); SODIUM 145 mmol/L (135-144)
[2017-05-06] MEDS ORDERED: BACITRACIN 50000 UNITS INJ (13:22)
[2017-05-06] MEDS ORDERED: PROPOFOL 0 ML (13:49)
[2017-05-06] MEDS ORDERED: ROCURONIUM 50 MG INJ (13:49)
[2017-05-06] MEDS ORDERED: MIDAZOLAM 1 MG/ML 2 ML INJ (13:50)
[2017-05-06] MEDS ORDERED: LIDOCAINE 1% (MDV) 20 ML INJ (13:50)
[2017-05-06] MEDS ORDERED: FENTAnyl 50 MCG/ML VIAL ×2 (13:58→16:28)
[2017-05-06] MEDS ORDERED: morphine SULFATE/PF (10 MG/10 ML) INJ (13:58)
[2017-05-06] MEDS ORDERED: BUPIVACAINE 0.75%/DEXT (SPINAL) 2 ML INJ (13:58)
[2017-05-06] MEDS ORDERED: PHENYLephrine (100 MCG/ML) 5ML SYG ×4 (14:46→16:43)
[2017-05-06] MEDS ORDERED: VASOPRESSIN 20 UNITS INJ ×2 (15:03→15:04)
[2017-05-06] MEDS ORDERED: MILRINONE LACTATE 1 MG/ML VIAL (15:23)
[2017-05-06] MEDS ORDERED: NORepinephrine 4 MG INJ (15:25)
[2017-05-06] MEDS ORDERED: PROPOFOL 100 ML (15:33)
[2017-05-06] MEDS ORDERED: ETOMIDATE 20 MG INJ (15:55)
[2017-05-06 16:21] LABS: IMMEDIATE SPIN CROSSMATCH 1 3
[2017-05-06] MEDS ORDERED: SUGAMMADEX SODIUM 200 MG/2 ML VIAL IV (17:00)
[2017-05-06] MEDS ORDERED: hydrALAzine 20 MG INJ (17:03)
[2017-05-06] MEDS ORDERED: LABETALOL HCL 20MG INJ (17:04)
[2017-05-06] MEDS: LABETALOL HCL 20MG INJ IV (17:20)
[2017-05-06 18:25] LABS: CREATINE KINASE 64 IU/L (23-200)
[2017-05-06 18:35] LABS: B-TYPE NATRIURETIC PEPTIDE 9550 PG/ML (0-450)
[2017-05-06 18:38] LABS: CK INDEX 2.2; CK-MB 1.39 ng/ml (0.0-2.4); TROPONIN-I 0.075 ng/ml (0.00-0.12)
[2017-05-06] MEDS: HYDROCODONE/APAP (5/325) TAB PO (18:38)
[2017-05-06] MEDS: TICAGRELOR 90 MG TABLET PO (20:31)
[2017-05-07] MEDS: HYDROmorphONE 0.5 MG/0.5 ML SYG IV ×7 (00:30→20:44)
[2017-05-07 01:26] LABS: CREATINE KINASE 73 IU/L (23-200)
[2017-05-07 01:38] LABS: CK INDEX 2.9; CK-MB 2.13 ng/ml (0.0-2.4)
[2017-05-07 01:43] LABS: TROPONIN-I 0.158 ng/ml (0.00-0.12)
[2017-05-07 05:34] LABS: ADD MAN DIFF? NO
[2017-05-07 05:37] LABS: BASOPHILS % 0.4 % (0.0-2.0); EOSINOPHILS # 0.5 10^3/ul (0.0-0.5); EOSINOPHILS % 8.8 % (0.0-7.0); HEMATOCRIT 32.4 % (37.0-47.0); HEMOGLOBIN 10.9 g/dl (12.0-16.0); LYMPHOCYTES # 1.1 10^3/ul (0.8-2.9); LYMPHOCYTES % 19.3 % (15.0-51.0); MEAN CORPUSCULAR HEMOGLOBIN 29.5 pg (29.0-33.0); MEAN CORPUSCULAR HGB CONC 33.6 g/dl (32.0-37.0); MEAN CORPUSCULAR VOLUME 87.6 fl (82.0-101.0); MEAN PLATELET VOLUME 11.3 fl (7.4-10.4); MONOCYTE # 0.5 10^3/ul (0.3-0.9); MONOCYTES % 9.1 % (0.0-11.0); NEUTROPHIL # 3.5 10^3/ul (1.6-7.5); NEUTROPHILS % 62.2 % (39.0-77.0); PLATELET COUNT 139 10^3/UL (140-415); RED CELL DISTRIBUTION WIDTH 14.2 % (11.5-14.5)
[2017-05-07 05:37] LABS: WHITE BLOOD COUNT 5.7 10^3/ul (4.8-10.8)
[2017-05-07 06:01] LABS: ANION GAP 18 (8-16); BLOOD UREA NITROGEN 27 mg/dl (7-20); CALCIUM 9.9 mg/dl (8.4-10.2); CARBON DIOXIDE 22 mmol/L (21-31); CHLORIDE 111 mmol/L (97-110); CREATININE 1.17 mg/dl (0.44-1.00); GLUCOSE 104 mg/dl (70-220); MAGNESIUM 1.8 mg/dl (1.7-2.5); PHOSPHORUS 3.6 mg/dl (2.5-4.9); POTASSIUM 4.1 mmol/L (3.5-5.1); SODIUM 147 mmol/L (135-144)
[2017-05-07 06:15] LABS: CK-MB 2.54 ng/ml (0.0-2.4)
[2017-05-07 06:21] LABS: CK INDEX 3.5; CREATINE KINASE 72 IU/L (23-200)
[2017-05-07 06:26] LABS: TROPONIN-I 0.236 ng/ml (0.00-0.12)
[2017-05-07] MEDS: LEVOTHYROXINE 88 MCG TAB PO (07:45)
[2017-05-07] MEDS: ASPIRIN 81 MG TAB PO (09:01)
[2017-05-07] MEDS: FAMOTIDINE 20 MG TAB PO (09:04)
[2017-05-07] MEDS: TICAGRELOR 90 MG TABLET PO ×2 (09:05→21:02)
[2017-05-07] MEDS: ENOXAPARIN 30 MG/0.3 ML SYG SC (09:07)
[2017-05-07] MEDS: FUROSEMIDE 40 MG INJ IV (09:09)
[2017-05-07] MEDS: METOPROLOL (XL) 25 MG TAB PO (09:09)
[2017-05-07] MEDS: DEXTROSE 5% 1,000 ML IV (09:14)
[2017-05-07] MEDS: VALSARTAN 80 MG TAB PO (09:19)
[2017-05-07] MEDS: HYDROCODONE/APAP (5/325) TAB PO ×4 (10:27→23:05)
[2017-05-07] MEDS: AZTREONAM 1 GM/NS (PMX) 50 ML IVPB ×2 (10:36→20:43)
[2017-05-07 11:49] LABS: LACTIC ACID 1.3 mmol/L (0.5-2.0)
[2017-05-07] MEDS: DOXYCYCLINE 100 MG in SOD CHLORIDE 0.9% 250 ML IVPB ×2 (15:30→21:11)
[2017-05-08] MEDS: DEXTROSE 5% 1,000 ML IV (04:30)
[2017-05-08] MEDS: HYDROCODONE/APAP (5/325) TAB PO ×5 (05:34→21:11)
[2017-05-08 05:38] LABS: ADD MAN DIFF? NO
[2017-05-08 05:47] LABS: WHITE BLOOD COUNT 8.3 10^3/ul (4.8-10.8)
[2017-05-08 05:47] LABS: BASOPHILS % 0.4 % (0.0-2.0); EOSINOPHILS # 0.3 10^3/ul (0.0-0.5); HEMATOCRIT 30.8 % (37.0-47.0); HEMOGLOBIN 10.6 g/dl (12.0-16.0); LYMPHOCYTES % 12.6 % (15.0-51.0); MEAN CORPUSCULAR HEMOGLOBIN 29.5 pg (29.0-33.0); MEAN CORPUSCULAR HGB CONC 34.4 g/dl (32.0-37.0); MEAN CORPUSCULAR VOLUME 85.8 fl (82.0-101.0); MEAN PLATELET VOLUME 11.8 fl (7.4-10.4); MONOCYTE # 0.9 10^3/ul (0.3-0.9); MONOCYTES % 10.4 % (0.0-11.0); NEUTROPHILS % 73.2 % (39.0-77.0); PLATELET COUNT 140 10^3/UL (140-415); RED BLOOD COUNT 3.59 10^6/ul (4.20-5.40); RED CELL DISTRIBUTION WIDTH 14.2 % (11.5-14.5)
[2017-05-08 06:16] LABS: ANION GAP 17 (8-16); BLOOD UREA NITROGEN 22 mg/dl (7-20); CALCIUM 9.4 mg/dl (8.4-10.2); CARBON DIOXIDE 22 mmol/L (21-31); CHLORIDE 108 mmol/L (97-110); CREATININE 1.05 mg/dl (0.44-1.00); GLUCOSE 132 mg/dl (70-220); MAGNESIUM 1.6 mg/dl (1.7-2.5); PHOSPHORUS 2.8 mg/dl (2.5-4.9); POTASSIUM 3.2 mmol/L (3.5-5.1); SODIUM 144 mmol/L (135-144)
[2017-05-08] MEDS: HYDROmorphONE 0.5 MG/0.5 ML SYG IV ×4 (07:33→20:07)
[2017-05-08] MEDS: POTASSIUM CHLORIDE (SR) 20 MEQ TAB PO (08:38)
[2017-05-08] MEDS: VALSARTAN 80 MG TAB PO ×2 (08:39→20:52)
[2017-05-08] MEDS: METOPROLOL (XL) 25 MG TAB PO ×2 (08:40→09:24)
[2017-05-08] MEDS: EZETIMIBE 10 MG TAB PO (08:40)
[2017-05-08] MEDS: FAMOTIDINE 20 MG TAB PO (08:40)
[2017-05-08] MEDS: LEVOTHYROXINE 88 MCG TAB PO (09:00)
[2017-05-08] MEDS: ASPIRIN 81 MG TAB PO (09:23)
[2017-05-08] MEDS: ENOXAPARIN 30 MG/0.3 ML SYG SC (09:23)
[2017-05-08] MEDS: TICAGRELOR 90 MG TABLET PO ×2 (09:23→21:08)
[2017-05-08] MEDS: DOCUSATE SODIUM 100 MG CAP PO ×2 (09:35→20:52)
[2017-05-08] MEDS: MAGNESIUM SULFATE 2 GM/50 ML 50 ML IVPB (10:19)
[2017-05-08] MEDS: AZTREONAM 1 GM/NS (PMX) 50 ML IVPB ×2 (10:43→20:52)
[2017-05-08] MEDS: DOXYCYCLINE 100 MG in SOD CHLORIDE 0.9% 250 ML IVPB ×2 (10:44→20:52)
[2017-05-08 11:00] LABS: TROPONIN-I 0.358 ng/ml (0.00-0.12)
[2017-05-08] MEDS ORDERED: FUROSEMIDE 40 MG INJ IV (19:00)
[2017-05-08] MEDS: NITROGLYCERIN (SL) 0.4 MG TAB SL ×2 (19:05→19:34)
[2017-05-08] MEDS: FUROSEMIDE 40 MG INJ IV (19:29)
[2017-05-08 20:19] LABS: TROPONIN-I 0.292 ng/ml (0.00-0.12)
[2017-05-08] MEDS: ONDANSETRON 4 MG INJ IV (23:55)
[2017-05-09] MEDS: HYDROmorphONE 0.5 MG/0.5 ML SYG IV ×2 (03:13)
[2017-05-09] MEDS: LORAZEPAM 2 MG INJ IV ×2 (03:30→10:51)
[2017-05-09 05:54] LABS: ADD MAN DIFF? NO
[2017-05-09] MEDS ORDERED: FUROSEMIDE 40 MG INJ IV (06:00)
[2017-05-09 06:11] LABS: WHITE BLOOD COUNT 6.8 10^3/ul (4.8-10.8)
[2017-05-09 06:11] LABS: BASOPHILS % 0.6 % (0.0-2.0); EOSINOPHILS # 0.1 10^3/ul (0.0-0.5); EOSINOPHILS % 1.5 % (0.0-7.0); HEMATOCRIT 31.2 % (37.0-47.0); HEMOGLOBIN 10.4 g/dl (12.0-16.0); LYMPHOCYTES # 0.9 10^3/ul (0.8-2.9); LYMPHOCYTES % 13.5 % (15.0-51.0); MEAN CORPUSCULAR HEMOGLOBIN 29.1 pg (29.0-33.0); MEAN CORPUSCULAR HGB CONC 33.3 g/dl (32.0-37.0); MEAN CORPUSCULAR VOLUME 87.4 fl (82.0-101.0); MONOCYTE # 0.7 10^3/ul (0.3-0.9); NEUTROPHILS % 73.8 % (39.0-77.0); PLATELET COUNT 161 10^3/UL (140-415); RED BLOOD COUNT 3.57 10^6/ul (4.20-5.40); RED CELL DISTRIBUTION WIDTH 14.2 % (11.5-14.5)
[2017-05-09 06:34] LABS: ANION GAP 18 (8-16); BLOOD UREA NITROGEN 25 mg/dl (7-20); CALCIUM 8.9 mg/dl (8.4-10.2); CARBON DIOXIDE 21 mmol/L (21-31); CHLORIDE 111 mmol/L (97-110); CREATININE 1.06 mg/dl (0.44-1.00); GLUCOSE 93 mg/dl (70-220); MAGNESIUM 2.1 mg/dl (1.7-2.5); PHOSPHORUS 2.8 mg/dl (2.5-4.9); POTASSIUM 3.4 mmol/L (3.5-5.1); SODIUM 147 mmol/L (135-144)
[2017-05-09] MEDS ORDERED: NA PHOSPHATE/BIPHOS 133 ML ENEMA PR (08:30)
[2017-05-09] MEDS: VALSARTAN 80 MG TAB PO ×2 (09:00→20:46)
[2017-05-09] MEDS: AZTREONAM 1 GM/NS (PMX) 50 ML IVPB ×2 (09:00→20:44)
[2017-05-09] MEDS: DOXYCYCLINE 100 MG in SOD CHLORIDE 0.9% 250 ML IVPB ×2 (09:00→22:37)
[2017-05-09] MEDS: SENNA TAB PO ×2 (09:03→20:48)
[2017-05-09] MEDS: EZETIMIBE 10 MG TAB PO (09:03)
[2017-05-09] MEDS: DOCUSATE SODIUM 100 MG CAP PO ×2 (09:03→20:44)
[2017-05-09] MEDS: POTASSIUM CHLORIDE 100 ML IVPB (09:03)
[2017-05-09] MEDS: LEVOTHYROXINE 88 MCG TAB PO (09:04)
[2017-05-09] MEDS: FAMOTIDINE 20 MG TAB PO (09:04)
[2017-05-09] MEDS: ASPIRIN 81 MG TAB PO (09:04)
[2017-05-09] MEDS: TICAGRELOR 90 MG TABLET PO ×2 (09:05→20:47)
[2017-05-09] MEDS: ENOXAPARIN 30 MG/0.3 ML SYG SC (09:05)
[2017-05-09] MEDS: HYDROCODONE/APAP (5/325) TAB PO ×2 (10:27→17:56)
[2017-05-09] MEDS: morphine 2 MG INJ IV ×2 (11:14→16:23)
[2017-05-09] MEDS: POTASSIUM CHLORIDE 10 MEQ in DEXTROSE 5% 1,000 ML IV ×2 (12:52→21:30)
[2017-05-09] MEDS ORDERED: HYDROCODONE/APAP (5/325) TAB PO (15:00)
[2017-05-09] MEDS: DEXTROSE 5% 1,000 ML IV (15:00)
[2017-05-09] MEDS: METOPROLOL (XL) 25 MG TAB PO (15:59)
[2017-05-09] MEDS: POTASSIUM CHLORIDE 20 MEQ POWDER FOR ORAL SOLN PO (16:28)
[2017-05-09] MEDS: FUROSEMIDE 40 MG INJ IV (17:00)
[2017-05-09 22:37] LABS: ANION GAP 17 (8-16); BLOOD UREA NITROGEN 28 mg/dl (7-20); CALCIUM 9.1 mg/dl (8.4-10.2); CARBON DIOXIDE 24 mmol/L (21-31); CHLORIDE 112 mmol/L (97-110); CREATININE 1.02 mg/dl (0.44-1.00); GLUCOSE 105 mg/dl (70-220); POTASSIUM 3.6 mmol/L (3.5-5.1); SODIUM 149 mmol/L (135-144)
[2017-05-10] MEDS: HYDROCODONE/APAP (5/325) TAB PO ×3 (00:36→12:39)
[2017-05-10] MEDS: morphine 2 MG INJ IV ×4 (02:31→21:46)
[2017-05-10 05:16] LABS: ADD MAN DIFF? NO
[2017-05-10 05:20] LABS: WHITE BLOOD COUNT 5.7 10^3/ul (4.8-10.8)
[2017-05-10 05:20] LABS: BASOPHILS % 0.5 % (0.0-2.0); EOSINOPHILS # 0.2 10^3/ul (0.0-0.5); HEMATOCRIT 31.7 % (37.0-47.0); HEMOGLOBIN 10.1 g/dl (12.0-16.0); LYMPHOCYTES # 1.2 10^3/ul (0.8-2.9); LYMPHOCYTES % 21.1 % (15.0-51.0); MEAN CORPUSCULAR HEMOGLOBIN 28.8 pg (29.0-33.0); MEAN CORPUSCULAR HGB CONC 31.9 g/dl (32.0-37.0); MEAN CORPUSCULAR VOLUME 90.3 fl (82.0-101.0); MEAN PLATELET VOLUME 11.5 fl (7.4-10.4); MONOCYTE # 0.7 10^3/ul (0.3-0.9); MONOCYTES % 11.6 % (0.0-11.0); NEUTROPHIL # 3.5 10^3/ul (1.6-7.5); NEUTROPHILS % 62.3 % (39.0-77.0); PLATELET COUNT 183 10^3/UL (140-415); RED BLOOD COUNT 3.51 10^6/ul (4.20-5.40); RED CELL DISTRIBUTION WIDTH 14.2 % (11.5-14.5)
[2017-05-10 05:45] LABS: ANION GAP 17 (8-16); BLOOD UREA NITROGEN 30 mg/dl (7-20); CALCIUM 8.9 mg/dl (8.4-10.2); CARBON DIOXIDE 24 mmol/L (21-31); CHLORIDE 112 mmol/L (97-110); CREATININE 1.14 mg/dl (0.44-1.00); GLUCOSE 102 mg/dl (70-220); PHOSPHORUS 2.8 mg/dl (2.5-4.9); POTASSIUM 3.6 mmol/L (3.5-5.1); SODIUM 149 mmol/L (135-144)
[2017-05-10] MEDS: LEVOTHYROXINE 88 MCG TAB PO (06:32)
[2017-05-10] MEDS ORDERED: METOPROLOL (XL) 25 MG TAB PO (07:30)
[2017-05-10] MEDS: METOPROLOL (XL) 25 MG TAB PO (08:16)
[2017-05-10] MEDS: VALSARTAN 80 MG TAB PO ×2 (08:18→20:48)
[2017-05-10] MEDS: TICAGRELOR 90 MG TABLET PO ×2 (08:20→20:52)
[2017-05-10] MEDS: EZETIMIBE 10 MG TAB PO (08:23)
[2017-05-10] MEDS: ASPIRIN 81 MG TAB PO (08:23)
[2017-05-10] MEDS: SENNA TAB PO ×3 (08:23→20:57)
[2017-05-10] MEDS: POTASSIUM CHLORIDE (SR) 20 MEQ TAB PO (08:25)
[2017-05-10] MEDS: FUROSEMIDE 40 MG INJ IV (08:26)
[2017-05-10] MEDS: FAMOTIDINE 20 MG TAB PO (08:26)
[2017-05-10] MEDS: DOCUSATE SODIUM 100 MG CAP PO ×2 (08:26→20:48)
[2017-05-10] MEDS: ENOXAPARIN 30 MG/0.3 ML SYG SC (08:46)
[2017-05-10] MEDS: DOXYCYCLINE 100 MG in SOD CHLORIDE 0.9% 250 ML IVPB ×2 (09:00→20:48)
[2017-05-10] MEDS: AZTREONAM 1 GM/NS (PMX) 50 ML IVPB ×2 (09:11→22:27)
[2017-05-10] MEDS: METOLAZONE 2.5 MG TAB PO (09:37)
[2017-05-10 17:07] LABS: ANION GAP 19 (8-16); BLOOD UREA NITROGEN 30 mg/dl (7-20); CALCIUM 9.5 mg/dl (8.4-10.2); CARBON DIOXIDE 23 mmol/L (21-31); CHLORIDE 108 mmol/L (97-110); CREATININE 1.15 mg/dl (0.44-1.00); GLUCOSE 111 mg/dl (70-220); POTASSIUM 3.6 mmol/L (3.5-5.1); SODIUM 146 mmol/L (135-144)
[2017-05-11] MEDS: morphine 2 MG INJ IV ×5 (04:17→20:48)
[2017-05-11 06:06] LABS: ADD MAN DIFF? NO
[2017-05-11 06:26] LABS: WHITE BLOOD COUNT 6.1 10^3/ul (4.8-10.8)
[2017-05-11 06:26] LABS: BASOPHILS % 0.7 % (0.0-2.0); EOSINOPHILS # 0.2 10^3/ul (0.0-0.5); EOSINOPHILS % 3.8 % (0.0-7.0); HEMATOCRIT 35.1 % (37.0-47.0); HEMOGLOBIN 11.4 g/dl (12.0-16.0); LYMPHOCYTES # 1.2 10^3/ul (0.8-2.9); LYMPHOCYTES % 19.5 % (15.0-51.0); MEAN CORPUSCULAR HEMOGLOBIN 29.1 pg (29.0-33.0); MEAN CORPUSCULAR HGB CONC 32.5 g/dl (32.0-37.0); MEAN CORPUSCULAR VOLUME 89.5 fl (82.0-101.0); MEAN PLATELET VOLUME 11.7 fl (7.4-10.4); MONOCYTE # 0.7 10^3/ul (0.3-0.9); MONOCYTES % 11.2 % (0.0-11.0); NEUTROPHIL # 3.9 10^3/ul (1.6-7.5); NEUTROPHILS % 64.3 % (39.0-77.0); PLATELET COUNT 246 10^3/UL (140-415); RED BLOOD COUNT 3.92 10^6/ul (4.20-5.40); RED CELL DISTRIBUTION WIDTH 14.1 % (11.5-14.5)
[2017-05-11] MEDS: LEVOTHYROXINE 88 MCG TAB PO (06:27)
[2017-05-11 07:12] LABS: ANION GAP 18 (8-16); BLOOD UREA NITROGEN 29 mg/dl (7-20); CALCIUM 9.6 mg/dl (8.4-10.2); CARBON DIOXIDE 24 mmol/L (21-31); CHLORIDE 107 mmol/L (97-110); CREATININE 1.13 mg/dl (0.44-1.00); GLUCOSE 121 mg/dl (70-220); MAGNESIUM 1.7 mg/dl (1.7-2.5); PHOSPHORUS 3.3 mg/dl (2.5-4.9); POTASSIUM 3.5 mmol/L (3.5-5.1); SODIUM 145 mmol/L (135-144)
[2017-05-11] MEDS ORDERED: MAGNESIUM SULFATE 2 GM/50 ML 50 ML IVPB (08:30)
[2017-05-11] MEDS: AZTREONAM 1 GM/NS (PMX) 50 ML IVPB (09:01)
[2017-05-11] MEDS: POTASSIUM CHLORIDE (SR) 20 MEQ TAB PO (09:03)
[2017-05-11] MEDS: FUROSEMIDE 40 MG INJ IV (09:03)
[2017-05-11] MEDS: EZETIMIBE 10 MG TAB PO (09:03)
[2017-05-11] MEDS: DOCUSATE SODIUM 100 MG CAP PO ×2 (09:04→20:48)
[2017-05-11] MEDS: ASPIRIN 81 MG TAB PO (09:04)
[2017-05-11] MEDS: VALSARTAN 80 MG TAB PO ×3 (09:04→21:00)
[2017-05-11] MEDS: METOPROLOL (XL) 25 MG TAB PO (09:04)
[2017-05-11] MEDS: FAMOTIDINE 20 MG TAB PO (09:04)
[2017-05-11] MEDS: SENNA TAB PO ×2 (09:04→20:48)
[2017-05-11] MEDS: MAGNESIUM SULFATE 2 GM/50 ML 50 ML IVPB (09:05)
[2017-05-11] MEDS: DOXYCYCLINE 100 MG in SOD CHLORIDE 0.9% 250 ML IVPB (09:05)
[2017-05-11] MEDS: TICAGRELOR 90 MG TABLET PO ×2 (09:10→20:49)
[2017-05-11] MEDS: ENOXAPARIN 30 MG/0.3 ML SYG SC (09:21)
[2017-05-11] MEDS: METOLAZONE 2.5 MG TAB PO (10:24)
[2017-05-11] MEDS: HYDROCODONE/APAP (10/325) TAB PO ×3 (11:31→23:30)
[2017-05-12 05:16] LABS: WHITE BLOOD COUNT 5.8 10^3/ul (4.8-10.8)
[2017-05-12 05:16] LABS: ADD MAN DIFF? NO; BASOPHILS % 0.5 % (0.0-2.0); EOSINOPHILS # 0.2 10^3/ul (0.0-0.5); EOSINOPHILS % 4.2 % (0.0-7.0); HEMATOCRIT 38.3 % (37.0-47.0); HEMOGLOBIN 12.6 g/dl (12.0-16.0); LYMPHOCYTES # 1.8 10^3/ul (0.8-2.9); LYMPHOCYTES % 31.9 % (15.0-51.0); MEAN CORPUSCULAR HEMOGLOBIN 28.9 pg (29.0-33.0); MEAN CORPUSCULAR HGB CONC 32.9 g/dl (32.0-37.0); MEAN CORPUSCULAR VOLUME 87.8 fl (82.0-101.0); MEAN PLATELET VOLUME 11.2 fl (7.4-10.4); MONOCYTE # 0.6 10^3/ul (0.3-0.9); MONOCYTES % 11.1 % (0.0-11.0); NEUTROPHILS % 51.8 % (39.0-77.0); PLATELET COUNT 288 10^3/UL (140-415); RED BLOOD COUNT 4.36 10^6/ul (4.20-5.40); RED CELL DISTRIBUTION WIDTH 13.8 % (11.5-14.5)
[2017-05-12] MEDS: morphine 2 MG INJ IV ×3 (05:27→20:30)
[2017-05-12 05:51] LABS: ANION GAP 17 (8-16); BLOOD UREA NITROGEN 33 mg/dl (7-20); CALCIUM 10.1 mg/dl (8.4-10.2); CARBON DIOXIDE 26 mmol/L (21-31); CHLORIDE 105 mmol/L (97-110); CREATININE 1.17 mg/dl (0.44-1.00); GLUCOSE 103 mg/dl (70-220); MAGNESIUM 2.1 mg/dl (1.7-2.5); PHOSPHORUS 4.5 mg/dl (2.5-4.9); POTASSIUM 3.9 mmol/L (3.5-5.1); SODIUM 144 mmol/L (135-144)
[2017-05-12] MEDS: LEVOTHYROXINE 88 MCG TAB PO (07:05)
[2017-05-12] MEDS: HYDROCODONE/APAP (10/325) TAB PO ×2 (07:05→17:25)
[2017-05-12] MEDS: EZETIMIBE 10 MG TAB PO (09:00)
[2017-05-12] MEDS: FUROSEMIDE 40 MG INJ IV (09:00)
[2017-05-12] MEDS: DOCUSATE SODIUM 100 MG CAP PO ×2 (09:00→20:24)
[2017-05-12] MEDS: METOPROLOL (XL) 100 MG TAB PO ×2 (09:00→11:20)
[2017-05-12] MEDS: SENNA TAB PO ×2 (09:00→20:24)
[2017-05-12] MEDS: ASPIRIN 81 MG TAB PO (09:00)
[2017-05-12] MEDS: FAMOTIDINE 20 MG TAB PO (09:00)
[2017-05-12] MEDS: VALSARTAN 80 MG TAB PO ×2 (09:00→20:35)
[2017-05-12] MEDS: ENOXAPARIN 30 MG/0.3 ML SYG SC (09:20)
[2017-05-12] MEDS: TICAGRELOR 90 MG TABLET PO ×2 (09:21→20:35)
[2017-05-12] MEDS: PRAVASTATIN 20 MG TAB PO (11:16)
[2017-05-12 12:58] LABS: PROCALCITONIN 1.01 ng/mL (<0.10)
[2017-05-12] MEDS ORDERED: METOPROLOL (XL) 25 MG TAB PO (18:30)
[2017-05-13] MEDS: HYDROCODONE/APAP (10/325) TAB PO ×2 (00:24→06:54)
[2017-05-13 05:02] LABS: ADD MAN DIFF? NO
[2017-05-13 05:05] LABS: WHITE BLOOD COUNT 8.2 10^3/ul (4.8-10.8)
[2017-05-13 05:05] LABS: BASOPHILS % 0.5 % (0.0-2.0); EOSINOPHILS # 0.3 10^3/ul (0.0-0.5); EOSINOPHILS % 3.8 % (0.0-7.0); HEMOGLOBIN 12.6 g/dl (12.0-16.0); LYMPHOCYTES # 2.3 10^3/ul (0.8-2.9); LYMPHOCYTES % 27.6 % (15.0-51.0); MEAN CORPUSCULAR HEMOGLOBIN 29.2 pg (29.0-33.0); MEAN CORPUSCULAR HGB CONC 33.2 g/dl (32.0-37.0); MEAN CORPUSCULAR VOLUME 88.2 fl (82.0-101.0); MEAN PLATELET VOLUME 11.2 fl (7.4-10.4); MONOCYTE # 0.8 10^3/ul (0.3-0.9); MONOCYTES % 10.3 % (0.0-11.0); NEUTROPHIL # 4.7 10^3/ul (1.6-7.5); NEUTROPHILS % 57.1 % (39.0-77.0); PLATELET COUNT 311 10^3/UL (140-415); RED BLOOD COUNT 4.31 10^6/ul (4.20-5.40); RED CELL DISTRIBUTION WIDTH 13.8 % (11.5-14.5)
[2017-05-13 05:24] LABS: ANION GAP 16 (8-16); BLOOD UREA NITROGEN 34 mg/dl (7-20); CALCIUM 9.9 mg/dl (8.4-10.2); CARBON DIOXIDE 26 mmol/L (21-31); CHLORIDE 104 mmol/L (97-110); CREATININE 1.14 mg/dl (0.44-1.00); GLUCOSE 123 mg/dl (70-220); PHOSPHORUS 4.6 mg/dl (2.5-4.9); POTASSIUM 4.3 mmol/L (3.5-5.1); SODIUM 142 mmol/L (135-144)
[2017-05-13] MEDS: LEVOTHYROXINE 88 MCG TAB PO (06:58)
[2017-05-13] MEDS: SENNA TAB PO ×2 (09:00→22:01)
[2017-05-13] MEDS: TICAGRELOR 90 MG TABLET PO ×2 (09:33→22:04)
[2017-05-13] MEDS: DOCUSATE SODIUM 100 MG CAP PO ×2 (09:34→22:01)
[2017-05-13] MEDS: ASPIRIN 81 MG TAB PO (09:34)
[2017-05-13] MEDS: ENOXAPARIN 30 MG/0.3 ML SYG SC (09:34)
[2017-05-13] MEDS: FAMOTIDINE 20 MG TAB PO (09:34)
[2017-05-13] MEDS: EZETIMIBE 10 MG TAB PO (09:35)
[2017-05-13] MEDS: FUROSEMIDE 40 MG TAB PO ×2 (09:39→17:21)
[2017-05-13] MEDS: VALSARTAN 80 MG TAB PO ×2 (09:40→21:00)
[2017-05-13] MEDS: morphine 2 MG INJ IV ×2 (10:38→13:44)
[2017-05-13] MEDS: METOPROLOL (XL) 50 MG TAB PO ×2 (13:43→18:42)
[2017-05-13] MEDS: SPIRONOLACTONE 25 MG TAB PO (13:43)
[2017-05-13] MEDS: morphine LIQ (10 MG/5 ML) CUP PO ×2 (17:21→22:14)
[2017-05-14] MEDS: morphine LIQ (10 MG/5 ML) CUP PO ×3 (03:08→15:29)
[2017-05-14] MEDS: SPIRONOLACTONE 25 MG TAB PO ×2 (05:31→08:55)
[2017-05-14] MEDS: FUROSEMIDE 40 MG TAB PO ×2 (05:31→17:32)
[2017-05-14] MEDS: LEVOTHYROXINE 88 MCG TAB PO ×2 (06:23→07:13)
[2017-05-14] MEDS: EZETIMIBE 10 MG TAB PO (08:55)
[2017-05-14] MEDS: FAMOTIDINE 20 MG TAB PO (08:56)
[2017-05-14] MEDS: DOCUSATE SODIUM 100 MG CAP PO ×2 (08:56→20:23)
[2017-05-14] MEDS: ASPIRIN 81 MG TAB PO (08:56)
[2017-05-14] MEDS: SENNA TAB PO ×2 (08:56→20:23)
[2017-05-14] MEDS: ENOXAPARIN 30 MG/0.3 ML SYG SC (08:57)
[2017-05-14] MEDS: TICAGRELOR 90 MG TABLET PO ×2 (08:57→20:24)
[2017-05-14] MEDS: VALSARTAN 80 MG TAB PO ×2 (08:58→20:26)
[2017-05-14] MEDS: METOPROLOL (XL) 50 MG TAB PO (08:59)
[2017-05-14] MEDS: PRAVASTATIN 20 MG TAB PO (09:54)
[2017-05-15] MEDS: FUROSEMIDE 40 MG TAB PO ×2 (06:41→17:29)
[2017-05-15] MEDS: LEVOTHYROXINE 88 MCG TAB PO (06:42)
[2017-05-15] MEDS: morphine LIQ (10 MG/5 ML) CUP PO (06:46)
[2017-05-15] MEDS: EZETIMIBE 10 MG TAB PO (08:36)
[2017-05-15] MEDS: FAMOTIDINE 20 MG TAB PO (08:36)
[2017-05-15] MEDS: DOCUSATE SODIUM 100 MG CAP PO ×2 (08:36→21:00)
[2017-05-15] MEDS: ENOXAPARIN 30 MG/0.3 ML SYG SC (08:37)
[2017-05-15] MEDS: TICAGRELOR 90 MG TABLET PO ×2 (08:37→22:28)
[2017-05-15] MEDS: SPIRONOLACTONE 25 MG TAB PO (08:38)
[2017-05-15] MEDS: HYDROCODONE/APAP (10/325) TAB PO (08:38)
[2017-05-15] MEDS: ASPIRIN 81 MG TAB PO (08:39)
[2017-05-15] MEDS: METOPROLOL (XL) 50 MG TAB PO (08:39)
[2017-05-15] MEDS: SENNA TAB PO ×2 (08:39→21:00)
[2017-05-15] MEDS: VALSARTAN 80 MG TAB PO ×2 (08:40→21:00)
[2017-05-15] MEDS: ONDANSETRON 4 MG INJ IV (15:32)
[2017-05-15] MEDS: PRAVASTATIN 20 MG TAB PO (22:29)
[2017-05-16] MEDS: FUROSEMIDE 40 MG TAB PO (06:00)
[2017-05-16] MEDS: LEVOTHYROXINE 88 MCG TAB PO (06:17)
[2017-05-16] MEDS: ASPIRIN 81 MG TAB PO (08:20)
[2017-05-16] MEDS: SPIRONOLACTONE 25 MG TAB PO (08:20)
[2017-05-16] MEDS: DOCUSATE SODIUM 100 MG CAP PO ×2 (08:21→20:40)
[2017-05-16] MEDS: FAMOTIDINE 20 MG TAB PO (08:22)
[2017-05-16] MEDS: SENNA TAB PO ×2 (08:22→20:40)
[2017-05-16] MEDS: VALSARTAN 80 MG TAB PO ×2 (08:22→20:40)
[2017-05-16] MEDS: METOPROLOL (XL) 50 MG TAB PO (08:24)
[2017-05-16] MEDS: EZETIMIBE 10 MG TAB PO (08:24)
[2017-05-16] MEDS: TICAGRELOR 90 MG TABLET PO ×2 (08:26→20:48)
[2017-05-16] MEDS: ENOXAPARIN 30 MG/0.3 ML SYG SC (08:27)
[2017-05-16] MEDS: ACETAMINOPHEN 325 MG TAB PO (08:29)
[2017-05-16] MEDS: morphine LIQ (10 MG/5 ML) CUP PO ×2 (10:01→23:49)
[2017-05-16] MEDS: HYDROCODONE/APAP (10/325) TAB PO ×2 (12:42→19:29)
[2017-05-16] MEDS: PRAVASTATIN 20 MG TAB PO (20:40)
== END 2017-05-16 22:52 | DRG 535 ==
LOC: ICU 05-06 15:40 → MS4 05-08 15:07 → E/R 14:09 → ICU 05-06 17:06 → MS4 20:45
PROC: 30233N1 Transfusion of Nonautologous Red Blood Cells into Peripheral Vein, Percutaneous Approach (ICD-10-PCS; 2017-05-06 13:00)
PROC: 5A1935Z Respiratory Ventilation, Less than 24 Consecutive Hours (ICD-10-PCS; principal; 2017-05-06 13:50)
DX: S72.002A Fracture of unspecified part of neck of left femur, initial encounter for closed fracture (principal); I21.09 ST elevation (STEMI) myocardial infarction involving other coronary artery of anterior wall; I22.2 Subsequent non-ST elevation (NSTEMI) myocardial infarction; J96.01 Acute respiratory failure with hypoxia; I50.23 Acute on chronic systolic (congestive) heart failure; J18.9 Pneumonia, unspecified organism; N17.9 Acute kidney failure, unspecified; E87.0 Hyperosmolality and hypernatremia; T88.2XXA Shock due to anesthesia, initial encounter; I13.0 Hypertensive heart and chronic kidney disease with heart failure and stage 1 through stage 4 chronic kidney disease, or unspecified chronic kidney disease; I25.5 Ischemic cardiomyopathy; N18.3 Chronic kidney disease, stage 3 (moderate); T41.0X5A Adverse effect of inhaled anesthetics, initial encounter; Y83.8 Other surgical procedures as the cause of abnormal reaction of the patient, or of later complication, without mention of misadventure at the time of the procedure; Z53.09 Procedure and treatment not carried out because of other contraindication; Y95 Nosocomial condition; D69.6 Thrombocytopenia, unspecified; D64.9 Anemia, unspecified; E87.6 Hypokalemia; E03.9 Hypothyroidism, unspecified; I25.10 Atherosclerotic heart disease of native coronary artery without angina pectoris; W01.0XXA Fall on same level from slipping, tripping and stumbling without subsequent striking against object, initial encounter; Z95.5 Presence of coronary angioplasty implant and graft; Z95.0 Presence of cardiac pacemaker; Z87.891 Personal history of nicotine dependence
CPT/HCPCS: 36415; 36430; 71045; 73510; 74176; 80048; 81003; 82043; 82550; 82553; 83605; 83735; 83880; 84100; 84145; 84155; 84300; 84484; 85025; 85610; 85730; 86850; 86900; 86901; 86920; 87040; 87081; 93005; 93306; 93312; 93325; 94770; 96374; 96375; 96376; 97110; 97163; 97530; 99291-25

== ENCOUNTER 2017-05-16 00:14 | Inpatient (IN) | payer MEDICARE, OTHER ==
[2017-05-17] MEDS ORDERED: FUROSEMIDE 40 MG TAB PO (01:36)
[2017-05-17] MEDS ORDERED: NITROGLYCERIN (SL) 0.4 MG TAB SL (01:36)
[2017-05-17] MEDS ORDERED: ONDANSETRON 4 MG INJ IV (01:36)
[2017-05-17] MEDS ORDERED: LORAZEPAM 2 MG INJ IV (01:36)
[2017-05-17] MEDS ORDERED: ACETAMINOPHEN 325 MG TAB PO (01:36)
[2017-05-17] MEDS ORDERED: PENDING SANTYL ORDER FOR WOUND CARE XX (05:00)
[2017-05-17] MEDS: LEVOTHYROXINE 88 MCG TAB PO (06:50)
[2017-05-17] MEDS ORDERED: BISACODYL 10 MG SUPP PR (07:30)
[2017-05-17] MEDS: HYDROCODONE/APAP (10/325) TAB PO ×2 (07:34→14:29)
[2017-05-17 07:39] LABS: ADD MAN DIFF? NO
[2017-05-17 07:41] LABS: BASOPHIL # 0.1 10^3/ul (0.0-0.1); BASOPHILS % 0.9 % (0.0-2.0); EOSINOPHILS # 0.3 10^3/ul (0.0-0.5); EOSINOPHILS % 4.3 % (0.0-7.0); HEMATOCRIT 37.1 % (37.0-47.0); HEMOGLOBIN 12.3 g/dl (12.0-16.0); LYMPHOCYTES # 2.3 10^3/ul (0.8-2.9); MEAN CORPUSCULAR HEMOGLOBIN 29.1 pg (29.0-33.0); MEAN CORPUSCULAR HGB CONC 33.2 g/dl (32.0-37.0); MEAN CORPUSCULAR VOLUME 87.9 fl (82.0-101.0); MEAN PLATELET VOLUME 11.4 fl (7.4-10.4); MONOCYTE # 0.8 10^3/ul (0.3-0.9); MONOCYTES % 10.8 % (0.0-11.0); NEUTROPHIL # 3.6 10^3/ul (1.6-7.5); NEUTROPHILS % 50.3 % (39.0-77.0); PLATELET COUNT 366 10^3/UL (140-415); RED BLOOD COUNT 4.22 10^6/ul (4.20-5.40); RED CELL DISTRIBUTION WIDTH 14.1 % (11.5-14.5)
[2017-05-17 07:41] LABS: WHITE BLOOD COUNT 7.1 10^3/ul (4.8-10.8)
[2017-05-17 08:09] LABS: ALANINE AMINOTRANSFERASE 67 IU/L (13-69); ALBUMIN 4.3 g/dl (3.3-4.9); ALBUMIN/GLOBULIN RATIO 1.34; ALKALINE PHOSPHATASE 103 IU/L (42-121); ANION GAP 19 (8-16); ASPARTATE AMINO TRANSFERASE 43 IU/L (15-46); BILIRUBIN,INDIRECT 0.4 mg/dl (0-1.1); BILIRUBIN,TOTAL 0.4 mg/dl (0.2-1.3); BLOOD UREA NITROGEN 45 mg/dl (7-20); CALCIUM 9.7 mg/dl (8.4-10.2); CARBON DIOXIDE 26 mmol/L (21-31); CHLORIDE 101 mmol/L (97-110); CREATININE 1.41 mg/dl (0.44-1.00); GLUCOSE 111 mg/dl (70-220); POTASSIUM 3.8 mmol/L (3.5-5.1); SODIUM 142 mmol/L (135-144); TOTAL PROTEIN 7.5 g/dl (6.1-8.1)
[2017-05-17 08:22] LABS: ADD UMIC NO; UR ASCORBIC ACID NEGATIVE (NEGATIVE); UR BILIRUBIN (Dip) NEGATIVE (NEGATIVE); UR BLOOD (Dip) NEGATIVE (NEGATIVE); UR CLARITY CLEAR (CLEAR); UR COLOR YELLOW (YELLOW); UR GLUCOSE (Dip) NEGATIVE (NEGATIVE); UR KETONES (Dip) NEGATIVE (NEGATIVE); UR LEUKOCYTE ESTERASE (Dip) NEGATIVE Leu/ul (NEGATIVE); UR NITRITE (Dip) NEGATIVE (NEGATIVE); UR SPECIFIC GRAVITY (Dip) 1.017 (1.003-1.030); UR TOTAL PROTEIN (Dip) NEGATIVE (NEGATIVE); UR UROBILINOGEN (Dip) NEGATIVE (NEGATIVE)
[2017-05-17] MEDS: ENOXAPARIN 30 MG/0.3 ML SYG SC (08:42)
[2017-05-17] MEDS: morphine LIQ (10 MG/5 ML) CUP PO ×2 (08:46→18:12)
[2017-05-17] MEDS: DOCUSATE SODIUM 100 MG CAP PO ×2 (08:47→21:15)
[2017-05-17] MEDS: FAMOTIDINE 20 MG TAB PO (08:47)
[2017-05-17] MEDS: SENNA TAB PO ×2 (08:47→21:00)
[2017-05-17] MEDS: EZETIMIBE 10 MG TAB PO (08:47)
[2017-05-17] MEDS: ASPIRIN 81 MG TAB PO (08:47)
[2017-05-17] MEDS: TICAGRELOR 90 MG TABLET PO ×2 (08:49→21:32)
[2017-05-17] MEDS: SPIRONOLACTONE 25 MG TAB PO (08:50)
[2017-05-17] MEDS: VALSARTAN 80 MG TAB PO ×2 (08:50→21:16)
[2017-05-17] MEDS: FUROSEMIDE 20 MG TAB PO (08:50)
[2017-05-17] MEDS: METOPROLOL (XL) 50 MG TAB PO (08:51)
[2017-05-17] MEDS: PRAVASTATIN 20 MG TAB PO (21:00)
[2017-05-18 06:33] LABS: ADD MAN DIFF? NO
[2017-05-18 06:40] LABS: BASOPHIL # 0.1 10^3/ul (0.0-0.1); BASOPHILS % 0.9 % (0.0-2.0); EOSINOPHILS # 0.3 10^3/ul (0.0-0.5); EOSINOPHILS % 5.1 % (0.0-7.0); HEMATOCRIT 37.3 % (37.0-47.0); HEMOGLOBIN 12.2 g/dl (12.0-16.0); LYMPHOCYTES # 1.8 10^3/ul (0.8-2.9); LYMPHOCYTES % 28.1 % (15.0-51.0); MEAN CORPUSCULAR HEMOGLOBIN 29.1 pg (29.0-33.0); MEAN CORPUSCULAR HGB CONC 32.7 g/dl (32.0-37.0); MONOCYTE # 0.6 10^3/ul (0.3-0.9); MONOCYTES % 9.6 % (0.0-11.0); NEUTROPHIL # 3.6 10^3/ul (1.6-7.5); NEUTROPHILS % 55.8 % (39.0-77.0); PLATELET COUNT 326 10^3/UL (140-415); RED BLOOD COUNT 4.19 10^6/ul (4.20-5.40)
[2017-05-18 06:40] LABS: WHITE BLOOD COUNT 6.5 10^3/ul (4.8-10.8)
[2017-05-18 06:59] LABS: ANION GAP 17 (8-16); BLOOD UREA NITROGEN 35 mg/dl (7-20); CALCIUM 9.5 mg/dl (8.4-10.2); CARBON DIOXIDE 26 mmol/L (21-31); CHLORIDE 104 mmol/L (97-110); CREATININE 1.18 mg/dl (0.44-1.00); GLUCOSE 104 mg/dl (70-220); MAGNESIUM 2.2 mg/dl (1.7-2.5); PHOSPHORUS 3.4 mg/dl (2.5-4.9); POTASSIUM 3.7 mmol/L (3.5-5.1); SODIUM 143 mmol/L (135-144)
[2017-05-18] MEDS: LEVOTHYROXINE 88 MCG TAB PO (08:10)
[2017-05-18] MEDS: morphine LIQ (10 MG/5 ML) CUP PO (08:16)
[2017-05-18] MEDS: VALSARTAN 80 MG TAB PO ×2 (08:46→21:55)
[2017-05-18] MEDS: DOCUSATE SODIUM 100 MG CAP PO ×2 (08:46→21:53)
[2017-05-18] MEDS: SENNA TAB PO ×2 (08:47→21:55)
[2017-05-18] MEDS: FUROSEMIDE 20 MG TAB PO (08:47)
[2017-05-18] MEDS: ASPIRIN 81 MG TAB PO (08:49)
[2017-05-18] MEDS: EZETIMIBE 10 MG TAB PO (08:49)
[2017-05-18] MEDS: FAMOTIDINE 20 MG TAB PO (08:49)
[2017-05-18] MEDS: METOPROLOL (XL) 50 MG TAB PO (08:49)
[2017-05-18] MEDS: ENOXAPARIN 30 MG/0.3 ML SYG SC (08:51)
[2017-05-18] MEDS: TICAGRELOR 90 MG TABLET PO ×2 (08:51→21:54)
[2017-05-18] MEDS: SPIRONOLACTONE 25 MG TAB PO (08:52)
[2017-05-18] MEDS: HYDROCODONE/APAP (10/325) TAB PO ×2 (09:58→19:40)
[2017-05-18] MEDS: PRAVASTATIN 20 MG TAB PO (21:52)
[2017-05-19] MEDS: HYDROCODONE/APAP (10/325) TAB PO ×4 (02:05→21:18)
[2017-05-19] MEDS: LEVOTHYROXINE 88 MCG TAB PO (06:40)
[2017-05-19] MEDS: SPIRONOLACTONE 25 MG TAB PO (09:00)
[2017-05-19] MEDS: FUROSEMIDE 20 MG TAB PO (09:00)
[2017-05-19] MEDS: DOCUSATE SODIUM 100 MG CAP PO ×2 (10:43→21:18)
[2017-05-19] MEDS: ASPIRIN 81 MG TAB PO (10:45)
[2017-05-19] MEDS: FAMOTIDINE 20 MG TAB PO (10:46)
[2017-05-19] MEDS: SENNA TAB PO ×2 (10:46→21:18)
[2017-05-19] MEDS: EZETIMIBE 10 MG TAB PO (10:47)
[2017-05-19] MEDS: ENOXAPARIN 30 MG/0.3 ML SYG SC (10:48)
[2017-05-19] MEDS: METOPROLOL (XL) 50 MG TAB PO (11:57)
[2017-05-19] MEDS: TICAGRELOR 90 MG TABLET PO ×2 (13:40→21:19)
[2017-05-19] MEDS: PRAVASTATIN 20 MG TAB PO (21:17)
[2017-05-20] MEDS: morphine LIQ (10 MG/5 ML) CUP PO ×3 (01:42→21:33)
[2017-05-20] MEDS: LEVOTHYROXINE 88 MCG TAB PO (06:32)
[2017-05-20 07:25] LABS: ADD MAN DIFF? NO
[2017-05-20 07:39] LABS: WHITE BLOOD COUNT 6.1 10^3/ul (4.8-10.8)
[2017-05-20 07:39] LABS: BASOPHILS % 0.7 % (0.0-2.0); EOSINOPHILS # 0.3 10^3/ul (0.0-0.5); EOSINOPHILS % 5.6 % (0.0-7.0); HEMATOCRIT 36.3 % (37.0-47.0); HEMOGLOBIN 11.8 g/dl (12.0-16.0); LYMPHOCYTES # 1.9 10^3/ul (0.8-2.9); LYMPHOCYTES % 30.6 % (15.0-51.0); MEAN CORPUSCULAR HEMOGLOBIN 29.1 pg (29.0-33.0); MEAN CORPUSCULAR HGB CONC 32.5 g/dl (32.0-37.0); MEAN CORPUSCULAR VOLUME 89.6 fl (82.0-101.0); MEAN PLATELET VOLUME 11.4 fl (7.4-10.4); MONOCYTE # 0.7 10^3/ul (0.3-0.9); MONOCYTES % 10.7 % (0.0-11.0); NEUTROPHIL # 3.2 10^3/ul (1.6-7.5); NEUTROPHILS % 51.9 % (39.0-77.0); PLATELET COUNT 312 10^3/UL (140-415); RED BLOOD COUNT 4.05 10^6/ul (4.20-5.40); RED CELL DISTRIBUTION WIDTH 14.1 % (11.5-14.5)
[2017-05-20 08:17] LABS: ANION GAP 18 (8-16); BLOOD UREA NITROGEN 24 mg/dl (7-20); CALCIUM 9.6 mg/dl (8.4-10.2); CARBON DIOXIDE 24 mmol/L (21-31); CHLORIDE 108 mmol/L (97-110); CREATININE 1.19 mg/dl (0.44-1.00); GLUCOSE 114 mg/dl (70-220); MAGNESIUM 2.2 mg/dl (1.7-2.5); PHOSPHORUS 3.7 mg/dl (2.5-4.9); POTASSIUM 4.3 mmol/L (3.5-5.1); SODIUM 146 mmol/L (135-144)
[2017-05-20] MEDS: EZETIMIBE 10 MG TAB PO (09:13)
[2017-05-20] MEDS: HYDROCODONE/APAP (10/325) TAB PO ×2 (09:14→17:52)
[2017-05-20] MEDS: METOPROLOL (XL) 50 MG TAB PO (09:15)
[2017-05-20] MEDS: SPIRONOLACTONE 25 MG TAB PO (09:15)
[2017-05-20] MEDS: DOCUSATE SODIUM 100 MG CAP PO ×2 (09:16→21:00)
[2017-05-20] MEDS: ASPIRIN 81 MG TAB PO (09:16)
[2017-05-20] MEDS: FAMOTIDINE 20 MG TAB PO (09:16)
[2017-05-20] MEDS: SENNA TAB PO ×2 (09:16→21:00)
[2017-05-20] MEDS: FUROSEMIDE 20 MG TAB PO (09:16)
[2017-05-20] MEDS: ENOXAPARIN 30 MG/0.3 ML SYG SC (09:20)
[2017-05-20] MEDS: TICAGRELOR 90 MG TABLET PO ×2 (09:20→21:30)
[2017-05-20] MEDS: PRAVASTATIN 20 MG TAB PO (21:29)
[2017-05-21] MEDS: LEVOTHYROXINE 88 MCG TAB PO (06:47)
[2017-05-21] MEDS: HYDROCODONE/APAP (10/325) TAB PO ×3 (06:47→21:31)
[2017-05-21] MEDS: METOPROLOL (XL) 50 MG TAB PO (08:51)
[2017-05-21] MEDS: DOCUSATE SODIUM 100 MG CAP PO ×2 (08:51→21:30)
[2017-05-21] MEDS: EZETIMIBE 10 MG TAB PO (08:51)
[2017-05-21] MEDS: ASPIRIN 81 MG TAB PO (08:51)
[2017-05-21] MEDS: FAMOTIDINE 20 MG TAB PO (08:51)
[2017-05-21] MEDS: SPIRONOLACTONE 25 MG TAB PO (08:51)
[2017-05-21] MEDS: FUROSEMIDE 20 MG TAB PO (08:52)
[2017-05-21] MEDS: SENNA TAB PO ×2 (08:52→21:00)
[2017-05-21] MEDS: TICAGRELOR 90 MG TABLET PO ×2 (08:57→21:32)
[2017-05-21] MEDS: ENOXAPARIN 30 MG/0.3 ML SYG SC (08:59)
[2017-05-21] MEDS: morphine LIQ (10 MG/5 ML) CUP PO (09:32)
[2017-05-21] MEDS: PRAVASTATIN 20 MG TAB PO (21:30)
[2017-05-22] MEDS: LEVOTHYROXINE 88 MCG TAB PO (06:40)
[2017-05-22] MEDS: HYDROCODONE/APAP (10/325) TAB PO ×3 (06:40→22:59)
[2017-05-22] MEDS: ASPIRIN 81 MG TAB PO (10:14)
[2017-05-22] MEDS: EZETIMIBE 10 MG TAB PO (10:14)
[2017-05-22] MEDS: FUROSEMIDE 20 MG TAB PO (10:14)
[2017-05-22] MEDS: SENNA TAB PO ×2 (10:14→20:56)
[2017-05-22] MEDS: SPIRONOLACTONE 25 MG TAB PO (10:15)
[2017-05-22] MEDS: TICAGRELOR 90 MG TABLET PO ×2 (10:15→21:05)
[2017-05-22] MEDS: DOCUSATE SODIUM 100 MG CAP PO ×2 (10:15→20:56)
[2017-05-22] MEDS: METOPROLOL (XL) 50 MG TAB PO (10:15)
[2017-05-22] MEDS: FAMOTIDINE 20 MG TAB PO (10:15)
[2017-05-22] MEDS: ENOXAPARIN 30 MG/0.3 ML SYG SC (10:16)
[2017-05-22] MEDS: PRAVASTATIN 20 MG TAB PO (20:56)
[2017-05-23] MEDS: LEVOTHYROXINE 88 MCG TAB PO (06:16)
[2017-05-23] MEDS: HYDROCODONE/APAP (10/325) TAB PO ×3 (07:45→20:55)
[2017-05-23] MEDS: EZETIMIBE 10 MG TAB PO (08:42)
[2017-05-23] MEDS: ASPIRIN 81 MG TAB PO (08:43)
[2017-05-23] MEDS: SENNA TAB PO ×2 (08:43→20:55)
[2017-05-23] MEDS: FUROSEMIDE 20 MG TAB PO (08:43)
[2017-05-23] MEDS: DOCUSATE SODIUM 100 MG CAP PO ×2 (08:43→20:55)
[2017-05-23] MEDS: SPIRONOLACTONE 25 MG TAB PO (08:44)
[2017-05-23] MEDS: FAMOTIDINE 20 MG TAB PO (08:44)
[2017-05-23] MEDS: ENOXAPARIN 30 MG/0.3 ML SYG SC (08:47)
[2017-05-23] MEDS: TICAGRELOR 90 MG TABLET PO ×2 (08:47→21:07)
[2017-05-23] MEDS: METOPROLOL (XL) 50 MG TAB PO (08:50)
[2017-05-23] MEDS: LOSARTAN 25 MG TAB PO (16:00)
[2017-05-23] MEDS: PRAVASTATIN 20 MG TAB PO (20:55)
[2017-05-24] MEDS: HYDROCODONE/APAP (10/325) TAB PO ×4 (03:58→20:37)
[2017-05-24] MEDS: LEVOTHYROXINE 88 MCG TAB PO (06:16)
[2017-05-24 06:29] LABS: ADD MAN DIFF? NO
[2017-05-24 06:35] LABS: WHITE BLOOD COUNT 7.4 10^3/ul (4.8-10.8)
[2017-05-24 06:35] LABS: BASOPHILS % 0.5 % (0.0-2.0); EOSINOPHILS # 0.4 10^3/ul (0.0-0.5); EOSINOPHILS % 4.8 % (0.0-7.0); HEMATOCRIT 38.4 % (37.0-47.0); HEMOGLOBIN 12.5 g/dl (12.0-16.0); LYMPHOCYTES # 2.2 10^3/ul (0.8-2.9); LYMPHOCYTES % 29.7 % (15.0-51.0); MEAN CORPUSCULAR HEMOGLOBIN 29.2 pg (29.0-33.0); MEAN CORPUSCULAR HGB CONC 32.6 g/dl (32.0-37.0); MEAN CORPUSCULAR VOLUME 89.7 fl (82.0-101.0); MEAN PLATELET VOLUME 10.9 fl (7.4-10.4); MONOCYTE # 0.8 10^3/ul (0.3-0.9); MONOCYTES % 10.9 % (0.0-11.0); NEUTROPHILS % 53.7 % (39.0-77.0); PLATELET COUNT 313 10^3/UL (140-415); RED BLOOD COUNT 4.28 10^6/ul (4.20-5.40); RED CELL DISTRIBUTION WIDTH 13.9 % (11.5-14.5)
[2017-05-24 06:53] LABS: ANION GAP 18 (8-16); BLOOD UREA NITROGEN 27 mg/dl (7-20); CALCIUM 9.8 mg/dl (8.4-10.2); CARBON DIOXIDE 24 mmol/L (21-31); CHLORIDE 106 mmol/L (97-110); GLUCOSE 120 mg/dl (70-220); PHOSPHORUS 4.5 mg/dl (2.5-4.9); POTASSIUM 4.1 mmol/L (3.5-5.1); SODIUM 144 mmol/L (135-144)
[2017-05-24] MEDS: EZETIMIBE 10 MG TAB PO (08:59)
[2017-05-24] MEDS: DOCUSATE SODIUM 100 MG CAP PO ×2 (08:59→20:38)
[2017-05-24] MEDS: SENNA TAB PO ×2 (08:59→20:38)
[2017-05-24] MEDS: LOSARTAN 25 MG TAB PO (08:59)
[2017-05-24] MEDS: ASPIRIN 81 MG TAB PO (09:00)
[2017-05-24] MEDS: METOPROLOL (XL) 50 MG TAB PO (09:00)
[2017-05-24] MEDS: TICAGRELOR 90 MG TABLET PO ×2 (09:00→20:43)
[2017-05-24] MEDS: FUROSEMIDE 20 MG TAB PO (09:01)
[2017-05-24] MEDS: FAMOTIDINE 20 MG TAB PO (09:01)
[2017-05-24] MEDS: SPIRONOLACTONE 25 MG TAB PO (09:01)
[2017-05-24] MEDS: ENOXAPARIN 30 MG/0.3 ML SYG SC (09:02)
[2017-05-24] MEDS: PRAVASTATIN 20 MG TAB PO (20:38)
[2017-05-25] MEDS: HYDROCODONE/APAP (10/325) TAB PO ×4 (02:23→19:03)
[2017-05-25] MEDS: LEVOTHYROXINE 88 MCG TAB PO (07:10)
[2017-05-25] MEDS: METOPROLOL (XL) 50 MG TAB PO (08:54)
[2017-05-25] MEDS: DOCUSATE SODIUM 100 MG CAP PO ×2 (08:54→21:00)
[2017-05-25] MEDS: ASPIRIN 81 MG TAB PO (08:54)
[2017-05-25] MEDS: EZETIMIBE 10 MG TAB PO (08:54)
[2017-05-25] MEDS: SENNA TAB PO ×2 (08:54→21:00)
[2017-05-25] MEDS: FUROSEMIDE 20 MG TAB PO (08:55)
[2017-05-25] MEDS: FAMOTIDINE 20 MG TAB PO (08:56)
[2017-05-25] MEDS: LOSARTAN 25 MG TAB PO (08:56)
[2017-05-25] MEDS: SPIRONOLACTONE 25 MG TAB PO (08:56)
[2017-05-25] MEDS: TICAGRELOR 90 MG TABLET PO ×2 (08:57→21:25)
[2017-05-25] MEDS: ENOXAPARIN 30 MG/0.3 ML SYG SC (08:58)
[2017-05-25] MEDS: PRAVASTATIN 20 MG TAB PO (21:23)
[2017-05-26] MEDS: HYDROCODONE/APAP (10/325) TAB PO ×5 (00:22→22:05)
[2017-05-26] MEDS: LEVOTHYROXINE 88 MCG TAB PO (06:43)
[2017-05-26 07:54] LABS: ADD MAN DIFF? NO
[2017-05-26 08:03] LABS: WHITE BLOOD COUNT 6.5 10^3/ul (4.8-10.8)
[2017-05-26 08:03] LABS: BASOPHILS % 0.3 % (0.0-2.0); EOSINOPHILS # 0.3 10^3/ul (0.0-0.5); EOSINOPHILS % 4.9 % (0.0-7.0); HEMATOCRIT 36.9 % (37.0-47.0); LYMPHOCYTES # 2.8 10^3/ul (0.8-2.9); LYMPHOCYTES % 42.4 % (15.0-51.0); MEAN CORPUSCULAR HEMOGLOBIN 29.3 pg (29.0-33.0); MEAN CORPUSCULAR HGB CONC 32.5 g/dl (32.0-37.0); MEAN PLATELET VOLUME 11.1 fl (7.4-10.4); MONOCYTE # 0.6 10^3/ul (0.3-0.9); MONOCYTES % 8.8 % (0.0-11.0); NEUTROPHIL # 2.8 10^3/ul (1.6-7.5); NEUTROPHILS % 43.3 % (39.0-77.0); PLATELET COUNT 279 10^3/UL (140-415); RED CELL DISTRIBUTION WIDTH 14.6 % (11.5-14.5)
[2017-05-26 08:34] LABS: ANION GAP 20 (8-16); BLOOD UREA NITROGEN 25 mg/dl (7-20); CALCIUM 9.7 mg/dl (8.4-10.2); CARBON DIOXIDE 22 mmol/L (21-31); CHLORIDE 108 mmol/L (97-110); CREATININE 1.54 mg/dl (0.44-1.00); GLUCOSE 101 mg/dl (70-220); PHOSPHORUS 4.1 mg/dl (2.5-4.9); POTASSIUM 3.8 mmol/L (3.5-5.1); SODIUM 146 mmol/L (135-144)
[2017-05-26] MEDS: SENNA TAB PO ×2 (09:00→21:00)
[2017-05-26] MEDS: LOSARTAN 25 MG TAB PO (09:00)
[2017-05-26] MEDS: DOCUSATE SODIUM 100 MG CAP PO ×2 (09:00→22:05)
[2017-05-26] MEDS: ENOXAPARIN 30 MG/0.3 ML SYG SC (09:26)
[2017-05-26] MEDS: TICAGRELOR 90 MG TABLET PO ×2 (09:26→22:14)
[2017-05-26] MEDS: EZETIMIBE 10 MG TAB PO (09:26)
[2017-05-26] MEDS: METOPROLOL (XL) 50 MG TAB PO (09:27)
[2017-05-26] MEDS: FAMOTIDINE 20 MG TAB PO (09:27)
[2017-05-26] MEDS: FUROSEMIDE 20 MG TAB PO (09:28)
[2017-05-26] MEDS: ASPIRIN 81 MG TAB PO (09:29)
[2017-05-26] MEDS: SPIRONOLACTONE 25 MG TAB PO (09:30)
[2017-05-26] MEDS: PRAVASTATIN 20 MG TAB PO (22:05)
[2017-05-27] MEDS: LEVOTHYROXINE 88 MCG TAB PO (06:22)
[2017-05-27 06:46] LABS: ADD MAN DIFF? NO
[2017-05-27 06:48] LABS: WHITE BLOOD COUNT 5.5 10^3/ul (4.8-10.8)
[2017-05-27 06:48] LABS: BASOPHILS % 0.4 % (0.0-2.0); EOSINOPHILS # 0.4 10^3/ul (0.0-0.5); EOSINOPHILS % 6.6 % (0.0-7.0); LYMPHOCYTES # 2.5 10^3/ul (0.8-2.9); LYMPHOCYTES % 44.7 % (15.0-51.0); MEAN CORPUSCULAR HEMOGLOBIN 29.7 pg (29.0-33.0); MEAN CORPUSCULAR HGB CONC 33.3 g/dl (32.0-37.0); MEAN CORPUSCULAR VOLUME 89.1 fl (82.0-101.0); MEAN PLATELET VOLUME 11.1 fl (7.4-10.4); MONOCYTE # 0.6 10^3/ul (0.3-0.9); MONOCYTES % 10.2 % (0.0-11.0); NEUTROPHIL # 2.1 10^3/ul (1.6-7.5); NEUTROPHILS % 37.9 % (39.0-77.0); PLATELET COUNT 250 10^3/UL (140-415); RED BLOOD COUNT 4.04 10^6/ul (4.20-5.40); RED CELL DISTRIBUTION WIDTH 14.4 % (11.5-14.5)
[2017-05-27 07:48] LABS: ANION GAP 18 (8-16); BLOOD UREA NITROGEN 22 mg/dl (7-20); CALCIUM 9.7 mg/dl (8.4-10.2); CARBON DIOXIDE 23 mmol/L (21-31); CHLORIDE 108 mmol/L (97-110); CREATININE 1.24 mg/dl (0.44-1.00); GLUCOSE 97 mg/dl (70-220); MAGNESIUM 2.1 mg/dl (1.7-2.5); POTASSIUM 3.9 mmol/L (3.5-5.1); SODIUM 145 mmol/L (135-144)
[2017-05-27] MEDS: FAMOTIDINE 20 MG TAB PO (08:07)
[2017-05-27] MEDS: ASPIRIN 81 MG TAB PO (08:08)
[2017-05-27] MEDS: SENNA TAB PO ×2 (08:08→21:14)
[2017-05-27] MEDS: EZETIMIBE 10 MG TAB PO (08:08)
[2017-05-27] MEDS: HYDROCODONE/APAP (10/325) TAB PO ×3 (08:08→18:02)
[2017-05-27] MEDS: FUROSEMIDE 20 MG TAB PO (08:09)
[2017-05-27] MEDS: DOCUSATE SODIUM 100 MG CAP PO ×2 (08:09→21:14)
[2017-05-27] MEDS: METOPROLOL (XL) 50 MG TAB PO (08:09)
[2017-05-27] MEDS: SPIRONOLACTONE 25 MG TAB PO (08:10)
[2017-05-27] MEDS: TICAGRELOR 90 MG TABLET PO ×2 (08:12→21:16)
[2017-05-27] MEDS: ENOXAPARIN 30 MG/0.3 ML SYG SC (08:12)
[2017-05-27] MEDS: LOSARTAN 25 MG TAB PO (09:00)
[2017-05-27] MEDS: PRAVASTATIN 20 MG TAB PO (21:14)
[2017-05-28] MEDS: HYDROCODONE/APAP (10/325) TAB PO ×4 (00:34→21:26)
[2017-05-28] MEDS: LEVOTHYROXINE 88 MCG TAB PO (06:21)
[2017-05-28] MEDS: SENNA TAB PO ×2 (09:30→21:00)
[2017-05-28] MEDS: FAMOTIDINE 20 MG TAB PO (09:30)
[2017-05-28] MEDS: EZETIMIBE 10 MG TAB PO (09:30)
[2017-05-28] MEDS: SPIRONOLACTONE 25 MG TAB PO (09:31)
[2017-05-28] MEDS: ASPIRIN 81 MG TAB PO (09:31)
[2017-05-28] MEDS: FUROSEMIDE 20 MG TAB PO (09:31)
[2017-05-28] MEDS: DOCUSATE SODIUM 100 MG CAP PO ×2 (09:31→21:00)
[2017-05-28] MEDS: METOPROLOL (XL) 50 MG TAB PO (09:32)
[2017-05-28] MEDS: LACTULOSE 30ML CUP PO (09:32)
[2017-05-28] MEDS: LOSARTAN 25 MG TAB PO (09:32)
[2017-05-28] MEDS: TICAGRELOR 90 MG TABLET PO ×2 (09:33→21:24)
[2017-05-28] MEDS: ENOXAPARIN 30 MG/0.3 ML SYG SC (09:34)
[2017-05-28] MEDS: PRAVASTATIN 20 MG TAB PO (21:23)
[2017-05-29] MEDS: HYDROCODONE/APAP (10/325) TAB PO ×3 (04:00→15:58)
[2017-05-29] MEDS: LEVOTHYROXINE 88 MCG TAB PO (06:27)
[2017-05-29] MEDS: SENNA TAB PO ×2 (09:00→21:00)
[2017-05-29] MEDS: DOCUSATE SODIUM 100 MG CAP PO ×2 (09:00→21:00)
[2017-05-29] MEDS: TICAGRELOR 90 MG TABLET PO ×2 (10:33→20:52)
[2017-05-29] MEDS: LOSARTAN 25 MG TAB PO ×2 (10:34→20:56)
[2017-05-29] MEDS: EZETIMIBE 10 MG TAB PO (10:35)
[2017-05-29] MEDS: FAMOTIDINE 20 MG TAB PO (10:35)
[2017-05-29] MEDS: ASPIRIN 81 MG TAB PO (10:35)
[2017-05-29] MEDS: SPIRONOLACTONE 25 MG TAB PO (10:35)
[2017-05-29] MEDS: FUROSEMIDE 20 MG TAB PO (10:36)
[2017-05-29] MEDS: METOPROLOL (XL) 50 MG TAB PO (10:37)
[2017-05-29] MEDS: ENOXAPARIN 30 MG/0.3 ML SYG SC (10:39)
[2017-05-29] MEDS: PRAVASTATIN 20 MG TAB PO (20:46)
[2017-05-30] MEDS: HYDROCODONE/APAP (10/325) TAB PO ×4 (03:48→20:27)
[2017-05-30] MEDS: LEVOTHYROXINE 88 MCG TAB PO (06:33)
[2017-05-30] MEDS: EZETIMIBE 10 MG TAB PO (08:43)
[2017-05-30] MEDS: DOCUSATE SODIUM 100 MG CAP PO ×2 (08:43→20:25)
[2017-05-30] MEDS: FAMOTIDINE 20 MG TAB PO (08:45)
[2017-05-30] MEDS: SENNA TAB PO ×2 (08:46→20:25)
[2017-05-30] MEDS: SPIRONOLACTONE 25 MG TAB PO (08:46)
[2017-05-30] MEDS: ASPIRIN 81 MG TAB PO (08:46)
[2017-05-30] MEDS: FUROSEMIDE 20 MG TAB PO (08:46)
[2017-05-30] MEDS: TICAGRELOR 90 MG TABLET PO ×2 (08:47→20:26)
[2017-05-30] MEDS: ENOXAPARIN 30 MG/0.3 ML SYG SC (08:47)
[2017-05-30] MEDS: METOPROLOL (XL) 50 MG TAB PO (10:39)
[2017-05-30] MEDS: LOSARTAN 25 MG TAB PO ×2 (10:40→20:26)
[2017-05-30] MEDS: PRAVASTATIN 20 MG TAB PO (20:24)
[2017-05-31] MEDS: HYDROCODONE/APAP (10/325) TAB PO ×3 (02:00→14:36)
[2017-05-31] MEDS: LEVOTHYROXINE 88 MCG TAB PO (06:29)
[2017-05-31 07:03] LABS: ADD MAN DIFF? NO
[2017-05-31 07:20] LABS: BASOPHILS % 0.3 % (0.0-2.0); EOSINOPHILS # 0.3 10^3/ul (0.0-0.5); EOSINOPHILS % 5.9 % (0.0-7.0); HEMATOCRIT 36.7 % (37.0-47.0); HEMOGLOBIN 12.1 g/dl (12.0-16.0); LYMPHOCYTES # 2.2 10^3/ul (0.8-2.9); LYMPHOCYTES % 38.1 % (15.0-51.0); MEAN CORPUSCULAR VOLUME 90.8 fl (82.0-101.0); MEAN PLATELET VOLUME 11.1 fl (7.4-10.4); MONOCYTE # 0.6 10^3/ul (0.3-0.9); MONOCYTES % 9.7 % (0.0-11.0); NEUTROPHIL # 2.7 10^3/ul (1.6-7.5); NEUTROPHILS % 45.8 % (39.0-77.0); PLATELET COUNT 212 10^3/UL (140-415); RED BLOOD COUNT 4.04 10^6/ul (4.20-5.40); RED CELL DISTRIBUTION WIDTH 14.9 % (11.5-14.5)
[2017-05-31 07:20] LABS: WHITE BLOOD COUNT 5.8 10^3/ul (4.8-10.8)
[2017-05-31 07:40] LABS: ANION GAP 13 (8-16); BLOOD UREA NITROGEN 16 mg/dl (7-20); CALCIUM 9.8 mg/dl (8.4-10.2); CARBON DIOXIDE 27 mmol/L (21-31); CHLORIDE 110 mmol/L (97-110); CREATININE 1.11 mg/dl (0.44-1.00); GLUCOSE 104 mg/dl (70-220); PHOSPHORUS 4.1 mg/dl (2.5-4.9); POTASSIUM 4.3 mmol/L (3.5-5.1); SODIUM 146 mmol/L (135-144)
[2017-05-31] MEDS: LACTULOSE 30ML CUP PO (08:36)
[2017-05-31] MEDS: LOSARTAN 25 MG TAB PO (08:37)
[2017-05-31] MEDS: ASPIRIN 81 MG TAB PO (08:38)
[2017-05-31] MEDS: DOCUSATE SODIUM 100 MG CAP PO (08:38)
[2017-05-31] MEDS: FAMOTIDINE 20 MG TAB PO (08:38)
[2017-05-31] MEDS: FUROSEMIDE 20 MG TAB PO (08:38)
[2017-05-31] MEDS: SPIRONOLACTONE 25 MG TAB PO (08:38)
[2017-05-31] MEDS: SENNA TAB PO (08:38)
[2017-05-31] MEDS: EZETIMIBE 10 MG TAB PO (08:38)
[2017-05-31] MEDS: METOPROLOL (XL) 50 MG TAB PO (08:39)
[2017-05-31] MEDS: TICAGRELOR 90 MG TABLET PO (08:40)
[2017-05-31] MEDS: ENOXAPARIN 30 MG/0.3 ML SYG SC (08:41)
== END 2017-05-31 15:23 | disposition short-term general hospital (02) | DRG 559 ==
LOC: VRC 00:14
DX: S72.002D Fracture of unspecified part of neck of left femur, subsequent encounter for closed fracture with routine healing (principal); I50.21 Acute systolic (congestive) heart failure; I21.4 Non-ST elevation (NSTEMI) myocardial infarction; J96.01 Acute respiratory failure with hypoxia; I13.0 Hypertensive heart and chronic kidney disease with heart failure and stage 1 through stage 4 chronic kidney disease, or unspecified chronic kidney disease; N18.3 Chronic kidney disease, stage 3 (moderate); E03.9 Hypothyroidism, unspecified; D64.9 Anemia, unspecified; I25.5 Ischemic cardiomyopathy
CPT/HCPCS: 73510; 80048; 80053; 81003; 83735; 84100; 85025; 87081; 87086; 97110; 97112; 97116; 97163; 97167; 97530; 97535; 97542

== ENCOUNTER 2017-06-06 19:27 | Inpatient (IN) | payer MEDICARE, OTHER ==
[2017-06-06] MEDS ORDERED: ASCORBIC ACID 500 MG TAB PO (20:30)
[2017-06-06] MEDS ORDERED: FLUTICASONE 0.05% 16 GM NAS SPRAY NASAL (20:30)
[2017-06-06] MEDS ORDERED: NITROGLYCERIN (SL) 0.4 MG TAB SL (20:30)
[2017-06-06] MEDS ORDERED: traZODone 50 MG TAB PO (20:30)
[2017-06-06] MEDS ORDERED: AL HYDROX/MG HYDROX/SIMETH 30 ML CUP PO (20:30)
[2017-06-06] MEDS: SENNA TAB PO (21:00)
[2017-06-06] MEDS: LOSARTAN 25 MG TAB PO (21:00)
[2017-06-06] MEDS: DOCUSATE SODIUM 100 MG CAP PO (21:42)
[2017-06-06] MEDS: FAMOTIDINE 20 MG TAB PO (21:42)
[2017-06-06] MEDS: oxyCODONE 5 MG TAB PO (22:45)
[2017-06-06] MEDS: TICAGRELOR 90 MG TABLET PO (22:47)
[2017-06-07] MEDS: ACETAMINOPHEN 325 MG TAB PO ×2 (00:04→18:58)
[2017-06-07] MEDS: oxyCODONE 5 MG TAB PO ×6 (02:05→23:23)
[2017-06-07 03:48] LABS: ADD UMIC YES; UR ASCORBIC ACID NEGATIVE (NEGATIVE); UR BACTERIA FEW /HPF (NONE SEEN); UR BILIRUBIN (Dip) NEGATIVE (NEGATIVE); UR BLOOD (Dip) NEGATIVE (NEGATIVE); UR CLARITY CLEAR (CLEAR); UR COLOR YELLOW (YELLOW); UR GLUCOSE (Dip) NEGATIVE (NEGATIVE); UR KETONES (Dip) NEGATIVE (NEGATIVE); UR LEUKOCYTE ESTERASE (Dip) TRACE Leu/ul (NEGATIVE); UR NITRITE (Dip) NEGATIVE (NEGATIVE); UR RBC 1 /HPF (0-5); UR SPECIFIC GRAVITY (Dip) 1.017 (1.003-1.030); UR TOTAL PROTEIN (Dip) NEGATIVE (NEGATIVE); UR UROBILINOGEN (Dip) NEGATIVE (NEGATIVE); UR WBC 8 /HPF (0-5)
[2017-06-07] MEDS: LEVOTHYROXINE 88 MCG TAB PO (06:12)
[2017-06-07 06:31] LABS: ADD MAN DIFF? NO
[2017-06-07 06:36] LABS: WHITE BLOOD COUNT 6.1 10^3/ul (4.8-10.8)
[2017-06-07 06:36] LABS: BASOPHILS % 0.3 % (0.0-2.0); EOSINOPHILS # 0.3 10^3/ul (0.0-0.5); EOSINOPHILS % 5.1 % (0.0-7.0); HEMATOCRIT 26.7 % (37.0-47.0); HEMOGLOBIN 8.6 g/dl (12.0-16.0); LYMPHOCYTES # 2.2 10^3/ul (0.8-2.9); LYMPHOCYTES % 35.6 % (15.0-51.0); MEAN CORPUSCULAR HEMOGLOBIN 29.8 pg (29.0-33.0); MEAN CORPUSCULAR HGB CONC 32.2 g/dl (32.0-37.0); MEAN CORPUSCULAR VOLUME 92.4 fl (82.0-101.0); MEAN PLATELET VOLUME 10.9 fl (7.4-10.4); MONOCYTE # 0.8 10^3/ul (0.3-0.9); MONOCYTES % 12.4 % (0.0-11.0); NEUTROPHIL # 2.8 10^3/ul (1.6-7.5); NEUTROPHILS % 45.8 % (39.0-77.0); PLATELET COUNT 240 10^3/UL (140-415); RED BLOOD COUNT 2.89 10^6/ul (4.20-5.40); RED CELL DISTRIBUTION WIDTH 16.2 % (11.5-14.5)
[2017-06-07 06:58] LABS: ALANINE AMINOTRANSFERASE 28 IU/L (13-69); ALBUMIN 2.9 g/dl (3.3-4.9); ALBUMIN/GLOBULIN RATIO 1.03; ALKALINE PHOSPHATASE 59 IU/L (42-121); ANION GAP 12 (8-16); ASPARTATE AMINO TRANSFERASE 21 IU/L (15-46); BILIRUBIN,INDIRECT 0.8 mg/dl (0-1.1); BILIRUBIN,TOTAL 0.8 mg/dl (0.2-1.3); BLOOD UREA NITROGEN 17 mg/dl (7-20); CALCIUM 8.9 mg/dl (8.4-10.2); CARBON DIOXIDE 26 mmol/L (21-31); CHLORIDE 110 mmol/L (97-110); CREATININE 1.29 mg/dl (0.44-1.00); GLUCOSE 97 mg/dl (70-220); POTASSIUM 4.4 mmol/L (3.5-5.1); SODIUM 144 mmol/L (135-144); TOTAL PROTEIN 5.7 g/dl (6.1-8.1)
[2017-06-07] MEDS: LIDOCAINE 5% PATCH TD (09:16)
[2017-06-07] MEDS: EZETIMIBE 10 MG TAB PO (09:16)
[2017-06-07] MEDS: FUROSEMIDE 20 MG TAB PO (09:18)
[2017-06-07] MEDS: FAMOTIDINE 20 MG TAB PO ×2 (09:18→20:17)
[2017-06-07] MEDS: MULTIVITAMINS THERAPEUTIC TAB PO (09:18)
[2017-06-07] MEDS: TICAGRELOR 90 MG TABLET PO ×2 (09:19→20:23)
[2017-06-07] MEDS: ENOXAPARIN 30 MG/0.3 ML SYG SC (09:19)
[2017-06-07] MEDS: DOCUSATE SODIUM 100 MG CAP PO ×2 (09:20→20:17)
[2017-06-07] MEDS: ASPIRIN (EC) 81 MG TAB PO (12:06)
[2017-06-07] MEDS: METOPROLOL (XL) 50 MG TAB PO (12:06)
[2017-06-07] MEDS: LOSARTAN 25 MG TAB PO ×2 (14:00→20:17)
[2017-06-07] MEDS: SENNA TAB PO (20:17)
[2017-06-08] MEDS: LEVOTHYROXINE 88 MCG TAB PO (06:18)
[2017-06-08 06:51] LABS: ADD MAN DIFF? NO
[2017-06-08 06:57] LABS: BASOPHILS % 0.6 % (0.0-2.0); EOSINOPHILS # 0.3 10^3/ul (0.0-0.5); EOSINOPHILS % 4.4 % (0.0-7.0); HEMATOCRIT 30.4 % (37.0-47.0); HEMOGLOBIN 9.7 g/dl (12.0-16.0); LYMPHOCYTES # 1.7 10^3/ul (0.8-2.9); LYMPHOCYTES % 26.6 % (15.0-51.0); MEAN CORPUSCULAR HGB CONC 31.9 g/dl (32.0-37.0); MEAN CORPUSCULAR VOLUME 94.1 fl (82.0-101.0); MEAN PLATELET VOLUME 10.7 fl (7.4-10.4); MONOCYTE # 0.9 10^3/ul (0.3-0.9); MONOCYTES % 13.7 % (0.0-11.0); NEUTROPHIL # 3.5 10^3/ul (1.6-7.5); NEUTROPHILS % 54.2 % (39.0-77.0); NUCLEATED RED BLOOD CELLS% 0.3 /100WBC (0.0-0.0); PLATELET COUNT 265 10^3/UL (140-415); RED BLOOD COUNT 3.23 10^6/ul (4.20-5.40); RED CELL DISTRIBUTION WIDTH 16.7 % (11.5-14.5)
[2017-06-08 06:57] LABS: WHITE BLOOD COUNT 6.4 10^3/ul (4.8-10.8)
[2017-06-08 07:19] LABS: ANION GAP 15 (8-16); BLOOD UREA NITROGEN 17 mg/dl (7-20); CALCIUM 8.9 mg/dl (8.4-10.2); CARBON DIOXIDE 25 mmol/L (21-31); CHLORIDE 106 mmol/L (97-110); CREATININE 1.37 mg/dl (0.44-1.00); GLUCOSE 101 mg/dl (70-220); MAGNESIUM 1.9 mg/dl (1.7-2.5); PHOSPHORUS 3.6 mg/dl (2.5-4.9); POTASSIUM 3.9 mmol/L (3.5-5.1); SODIUM 142 mmol/L (135-144)
[2017-06-08] MEDS: oxyCODONE 5 MG TAB PO ×3 (08:12→18:09)
[2017-06-08] MEDS: METOPROLOL (XL) 50 MG TAB PO (09:00)
[2017-06-08] MEDS: FUROSEMIDE 20 MG TAB PO (10:08)
[2017-06-08] MEDS: MULTIVITAMINS THERAPEUTIC TAB PO (10:09)
[2017-06-08] MEDS: DOCUSATE SODIUM 100 MG CAP PO ×2 (10:09→20:09)
[2017-06-08] MEDS: FAMOTIDINE 20 MG TAB PO ×2 (10:09→20:10)
[2017-06-08] MEDS: ASPIRIN (EC) 81 MG TAB PO (10:09)
[2017-06-08] MEDS: EZETIMIBE 10 MG TAB PO (10:09)
[2017-06-08] MEDS: TICAGRELOR 90 MG TABLET PO ×2 (10:11→20:10)
[2017-06-08] MEDS: ENOXAPARIN 30 MG/0.3 ML SYG SC (10:13)
[2017-06-08] MEDS: LIDOCAINE 5% PATCH TD (10:16)
[2017-06-08] MEDS: ACETAMINOPHEN 325 MG TAB PO (20:10)
[2017-06-08] MEDS: SENNA TAB PO (20:10)
[2017-06-08] MEDS: LOSARTAN 25 MG TAB PO (20:11)
[2017-06-09] MEDS: LEVOTHYROXINE 88 MCG TAB PO (05:52)
[2017-06-09] MEDS: oxyCODONE 5 MG TAB PO ×3 (05:52→18:08)
[2017-06-09 06:49] LABS: ANION GAP 11 (8-16); BLOOD UREA NITROGEN 15 mg/dl (7-20); CALCIUM 8.9 mg/dl (8.4-10.2); CARBON DIOXIDE 28 mmol/L (21-31); CHLORIDE 108 mmol/L (97-110); CREATININE 1.31 mg/dl (0.44-1.00); GLUCOSE 107 mg/dl (70-220); MAGNESIUM 1.9 mg/dl (1.7-2.5); PHOSPHORUS 3.9 mg/dl (2.5-4.9); POTASSIUM 3.8 mmol/L (3.5-5.1); SODIUM 143 mmol/L (135-144)
[2017-06-09] MEDS: LOSARTAN 25 MG TAB PO ×2 (09:00→20:34)
[2017-06-09] MEDS: MULTIVITAMINS THERAPEUTIC TAB PO (09:37)
[2017-06-09] MEDS: FAMOTIDINE 20 MG TAB PO ×2 (09:37→20:31)
[2017-06-09] MEDS: EZETIMIBE 10 MG TAB PO (09:37)
[2017-06-09] MEDS: FUROSEMIDE 20 MG TAB PO (09:37)
[2017-06-09] MEDS: ASPIRIN (EC) 81 MG TAB PO (09:37)
[2017-06-09] MEDS: METOPROLOL (XL) 50 MG TAB PO (09:37)
[2017-06-09] MEDS: DOCUSATE SODIUM 100 MG CAP PO ×2 (09:38→20:35)
[2017-06-09] MEDS: TICAGRELOR 90 MG TABLET PO ×2 (09:38→20:34)
[2017-06-09] MEDS: LIDOCAINE 5% PATCH TD (09:39)
[2017-06-09] MEDS: ENOXAPARIN 30 MG/0.3 ML SYG SC (09:40)
[2017-06-09] MEDS: ACETAMINOPHEN 325 MG TAB PO (20:30)
[2017-06-09] MEDS: SENNA TAB PO (20:35)
[2017-06-10] MEDS: LEVOTHYROXINE 88 MCG TAB PO (06:25)
[2017-06-10] MEDS: oxyCODONE 5 MG TAB PO ×4 (06:26→20:42)
[2017-06-10] MEDS: DOCUSATE SODIUM 100 MG CAP PO ×2 (08:56→20:32)
[2017-06-10] MEDS: EZETIMIBE 10 MG TAB PO (08:56)
[2017-06-10] MEDS: LOSARTAN 25 MG TAB PO ×2 (08:57→20:35)
[2017-06-10] MEDS: ASPIRIN (EC) 81 MG TAB PO (08:58)
[2017-06-10] MEDS: MULTIVITAMINS THERAPEUTIC TAB PO (08:58)
[2017-06-10] MEDS: FUROSEMIDE 20 MG TAB PO (08:58)
[2017-06-10] MEDS: FAMOTIDINE 20 MG TAB PO ×2 (08:58→20:33)
[2017-06-10] MEDS: METOPROLOL (XL) 50 MG TAB PO (08:59)
[2017-06-10] MEDS: TICAGRELOR 90 MG TABLET PO ×2 (09:00→20:39)
[2017-06-10] MEDS: LIDOCAINE 5% PATCH TD (09:00)
[2017-06-10] MEDS: ENOXAPARIN 30 MG/0.3 ML SYG SC (09:01)
[2017-06-10] MEDS: LEVOFLOXACIN 250 MG TAB PO ×2 (13:39→13:45)
[2017-06-10] MEDS: SENNA TAB PO (20:33)
[2017-06-11] MEDS: oxyCODONE 5 MG TAB PO ×6 (02:31→21:16)
[2017-06-11] MEDS: LEVOTHYROXINE 88 MCG TAB PO (06:21)
[2017-06-11] MEDS: LOSARTAN 25 MG TAB PO ×2 (09:00→21:00)
[2017-06-11] MEDS: FUROSEMIDE 20 MG TAB PO (09:56)
[2017-06-11] MEDS: METOPROLOL (XL) 50 MG TAB PO (09:56)
[2017-06-11] MEDS: MULTIVITAMINS THERAPEUTIC TAB PO (09:58)
[2017-06-11] MEDS: FAMOTIDINE 20 MG TAB PO ×2 (09:58→21:14)
[2017-06-11] MEDS: TICAGRELOR 90 MG TABLET PO ×2 (09:58→21:19)
[2017-06-11] MEDS: DOCUSATE SODIUM 100 MG CAP PO ×2 (09:59→21:00)
[2017-06-11] MEDS ORDERED: IBUPROFEN 200 MG TAB PO (10:00)
[2017-06-11] MEDS: ASPIRIN (EC) 81 MG TAB PO (10:00)
[2017-06-11] MEDS: EZETIMIBE 10 MG TAB PO (10:00)
[2017-06-11] MEDS ORDERED: CEPASTAT LOZENGE MT (10:00)
[2017-06-11] MEDS: ENOXAPARIN 30 MG/0.3 ML SYG SC (10:01)
[2017-06-11] MEDS: LIDOCAINE 5% PATCH TD (10:04)
[2017-06-11 11:19] LABS: ADD MAN DIFF? NO
[2017-06-11 11:23] LABS: BASOPHILS % 0.5 % (0.0-2.0); EOSINOPHILS # 0.2 10^3/ul (0.0-0.5); EOSINOPHILS % 3.1 % (0.0-7.0); HEMATOCRIT 31.5 % (37.0-47.0); HEMOGLOBIN 9.8 g/dl (12.0-16.0); LYMPHOCYTES # 1.2 10^3/ul (0.8-2.9); LYMPHOCYTES % 18.9 % (15.0-51.0); MEAN CORPUSCULAR HEMOGLOBIN 29.7 pg (29.0-33.0); MEAN CORPUSCULAR HGB CONC 31.1 g/dl (32.0-37.0); MEAN CORPUSCULAR VOLUME 95.5 fl (82.0-101.0); MEAN PLATELET VOLUME 10.5 fl (7.4-10.4); MONOCYTE # 0.5 10^3/ul (0.3-0.9); MONOCYTES % 8.6 % (0.0-11.0); NEUTROPHIL # 4.2 10^3/ul (1.6-7.5); NEUTROPHILS % 68.2 % (39.0-77.0); PLATELET COUNT 291 10^3/UL (140-415); RED CELL DISTRIBUTION WIDTH 17.3 % (11.5-14.5)
[2017-06-11 11:23] LABS: WHITE BLOOD COUNT 6.1 10^3/ul (4.8-10.8)
[2017-06-11 11:48] LABS: ANION GAP 14 (8-16); BLOOD UREA NITROGEN 14 mg/dl (7-20); CALCIUM 8.9 mg/dl (8.4-10.2); CARBON DIOXIDE 27 mmol/L (21-31); CHLORIDE 103 mmol/L (97-110); CREATININE 1.17 mg/dl (0.44-1.00); GLUCOSE 138 mg/dl (70-220); POTASSIUM 3.7 mmol/L (3.5-5.1); SODIUM 140 mmol/L (135-144)
[2017-06-11 12:49] LABS: ERYTHROCYTE SEDIMENTATION RATE 50 mm/Hr (0-30)
[2017-06-11] MEDS: SENNA TAB PO (21:00)
[2017-06-12] MEDS: LEVOTHYROXINE 88 MCG TAB PO (05:13)
[2017-06-12] MEDS: oxyCODONE 5 MG TAB PO ×4 (05:13→19:45)
[2017-06-12] MEDS: DOCUSATE SODIUM 100 MG CAP PO ×2 (08:22→20:10)
[2017-06-12] MEDS: FAMOTIDINE 20 MG TAB PO ×2 (08:22→20:10)
[2017-06-12] MEDS: MULTIVITAMINS THERAPEUTIC TAB PO (08:22)
[2017-06-12] MEDS: EZETIMIBE 10 MG TAB PO (08:22)
[2017-06-12] MEDS: ASPIRIN (EC) 81 MG TAB PO (08:22)
[2017-06-12] MEDS: FUROSEMIDE 20 MG TAB PO (08:23)
[2017-06-12] MEDS: TICAGRELOR 90 MG TABLET PO ×2 (08:23→20:13)
[2017-06-12] MEDS: METOPROLOL (XL) 50 MG TAB PO (08:24)
[2017-06-12] MEDS: LOSARTAN 25 MG TAB PO ×2 (08:24→20:13)
[2017-06-12] MEDS: LIDOCAINE 5% PATCH TD (08:25)
[2017-06-12] MEDS: ENOXAPARIN 30 MG/0.3 ML SYG SC (08:25)
[2017-06-12] MEDS: SENNA TAB PO (20:15)
[2017-06-13] MEDS: LEVOTHYROXINE 88 MCG TAB PO (06:05)
[2017-06-13] MEDS: LIDOCAINE 5% PATCH TD (08:38)
[2017-06-13] MEDS: EZETIMIBE 10 MG TAB PO (08:38)
[2017-06-13] MEDS: DOCUSATE SODIUM 100 MG CAP PO ×2 (08:39→20:16)
[2017-06-13] MEDS: oxyCODONE 5 MG TAB PO ×3 (08:39→20:17)
[2017-06-13] MEDS: ASPIRIN (EC) 81 MG TAB PO (08:43)
[2017-06-13] MEDS: MULTIVITAMINS THERAPEUTIC TAB PO (08:43)
[2017-06-13] MEDS: FUROSEMIDE 20 MG TAB PO (08:43)
[2017-06-13] MEDS: FAMOTIDINE 20 MG TAB PO ×2 (08:43→20:16)
[2017-06-13] MEDS: TICAGRELOR 90 MG TABLET PO ×2 (08:52→20:18)
[2017-06-13] MEDS: ENOXAPARIN 30 MG/0.3 ML SYG SC (08:53)
[2017-06-13] MEDS: LOSARTAN 25 MG TAB PO ×2 (09:00→21:00)
[2017-06-13] MEDS: METOPROLOL (XL) 50 MG TAB PO (09:00)
[2017-06-13] MEDS: MAGNESIUM HYDROXIDE 30ML CUP PO (20:16)
[2017-06-13] MEDS: SENNA TAB PO (20:16)
[2017-06-14] MEDS: oxyCODONE 5 MG TAB PO ×5 (01:27→22:00)
[2017-06-14] MEDS: LEVOTHYROXINE 88 MCG TAB PO (06:15)
[2017-06-14] MEDS: LOSARTAN 25 MG TAB PO ×2 (09:00→21:00)
[2017-06-14] MEDS: MULTIVITAMINS THERAPEUTIC TAB PO (09:02)
[2017-06-14] MEDS: ASPIRIN (EC) 81 MG TAB PO (09:02)
[2017-06-14] MEDS: FAMOTIDINE 20 MG TAB PO ×2 (09:02→21:59)
[2017-06-14] MEDS: EZETIMIBE 10 MG TAB PO (09:02)
[2017-06-14] MEDS: DOCUSATE SODIUM 100 MG CAP PO ×2 (09:02→21:59)
[2017-06-14] MEDS: METOPROLOL (XL) 50 MG TAB PO (09:57)
[2017-06-14] MEDS: TICAGRELOR 90 MG TABLET PO ×2 (10:02→22:16)
[2017-06-14] MEDS: LIDOCAINE 5% PATCH TD (10:04)
[2017-06-14] MEDS: ENOXAPARIN 30 MG/0.3 ML SYG SC (10:04)
[2017-06-14] MEDS: FUROSEMIDE 20 MG TAB PO (10:08)
[2017-06-14] MEDS: LACTULOSE 30ML CUP PO (17:13)
[2017-06-14] MEDS: BISACODYL 10 MG SUPP PR (19:02)
[2017-06-14] MEDS: NA PHOSPHATE/BIPHOS 133 ML ENEMA PR (20:40)
[2017-06-14] MEDS: SENNA TAB PO (21:59)
[2017-06-15] MEDS: LEVOTHYROXINE 88 MCG TAB PO (06:26)
[2017-06-15] MEDS: oxyCODONE 5 MG TAB PO ×3 (06:27→20:01)
[2017-06-15 07:18] LABS: ANION GAP 15 (8-16); BLOOD UREA NITROGEN 13 mg/dl (7-20); CALCIUM 9.2 mg/dl (8.4-10.2); CARBON DIOXIDE 27 mmol/L (21-31); CHLORIDE 108 mmol/L (97-110); CREATININE 1.11 mg/dl (0.44-1.00); GLUCOSE 114 mg/dl (70-220); MAGNESIUM 2.1 mg/dl (1.7-2.5); PHOSPHORUS 4.2 mg/dl (2.5-4.9); POTASSIUM 3.6 mmol/L (3.5-5.1); SODIUM 146 mmol/L (135-144)
[2017-06-15] MEDS: EZETIMIBE 10 MG TAB PO (08:58)
[2017-06-15] MEDS: FUROSEMIDE 20 MG TAB PO (08:59)
[2017-06-15] MEDS: MULTIVITAMINS THERAPEUTIC TAB PO (08:59)
[2017-06-15] MEDS: DOCUSATE SODIUM 100 MG CAP PO ×2 (08:59→20:01)
[2017-06-15] MEDS: ASPIRIN (EC) 81 MG TAB PO (08:59)
[2017-06-15] MEDS: LOSARTAN 25 MG TAB PO ×2 (09:00→20:03)
[2017-06-15] MEDS: FAMOTIDINE 20 MG TAB PO ×2 (09:00→20:01)
[2017-06-15] MEDS: METOPROLOL (XL) 50 MG TAB PO (09:00)
[2017-06-15] MEDS: LIDOCAINE 5% PATCH TD (09:00)
[2017-06-15] MEDS: ENOXAPARIN 30 MG/0.3 ML SYG SC (09:01)
[2017-06-15] MEDS: TICAGRELOR 90 MG TABLET PO ×2 (09:24→21:38)
[2017-06-15] MEDS: SENNA TAB PO (21:00)
[2017-06-16] MEDS: LEVOTHYROXINE 88 MCG TAB PO (06:03)
[2017-06-16] MEDS: oxyCODONE 5 MG TAB PO ×4 (06:06→22:02)
[2017-06-16 07:02] LABS: ANION GAP 15 (8-16); BLOOD UREA NITROGEN 12 mg/dl (7-20); CALCIUM 8.9 mg/dl (8.4-10.2); CARBON DIOXIDE 25 mmol/L (21-31); CHLORIDE 107 mmol/L (97-110); CREATININE 1.05 mg/dl (0.44-1.00); GLUCOSE 123 mg/dl (70-220); POTASSIUM 3.2 mmol/L (3.5-5.1); SODIUM 144 mmol/L (135-144)
[2017-06-16] MEDS ORDERED: POLYETHYLENE GLYCOL 17 GM PACKET PO (09:00)
[2017-06-16] MEDS: POTASSIUM CHLORIDE (SR) 20 MEQ TAB PO (09:04)
[2017-06-16] MEDS: DOCUSATE SODIUM 100 MG CAP PO ×2 (09:04→20:19)
[2017-06-16] MEDS: EZETIMIBE 10 MG TAB PO (09:05)
[2017-06-16] MEDS: METOPROLOL (XL) 50 MG TAB PO (09:05)
[2017-06-16] MEDS: MULTIVITAMINS THERAPEUTIC TAB PO (09:05)
[2017-06-16] MEDS: ASPIRIN (EC) 81 MG TAB PO (09:05)
[2017-06-16] MEDS: FAMOTIDINE 20 MG TAB PO ×2 (09:05→20:19)
[2017-06-16] MEDS: LIDOCAINE 5% PATCH TD (09:07)
[2017-06-16] MEDS: FUROSEMIDE 20 MG TAB PO (09:07)
[2017-06-16] MEDS: LOSARTAN 25 MG TAB PO ×2 (09:08→20:20)
[2017-06-16] MEDS: TICAGRELOR 90 MG TABLET PO ×2 (09:10→20:24)
[2017-06-16] MEDS: ENOXAPARIN 30 MG/0.3 ML SYG SC (09:10)
[2017-06-16] MEDS: SENNA TAB PO (20:26)
[2017-06-17] MEDS: oxyCODONE 5 MG TAB PO ×3 (02:13→20:42)
[2017-06-17] MEDS: LEVOTHYROXINE 88 MCG TAB PO (06:24)
[2017-06-17] MEDS: ENOXAPARIN 30 MG/0.3 ML SYG SC (08:23)
[2017-06-17] MEDS: TICAGRELOR 90 MG TABLET PO ×2 (08:23→20:44)
[2017-06-17] MEDS: LIDOCAINE 5% PATCH TD (08:24)
[2017-06-17] MEDS: EZETIMIBE 10 MG TAB PO (08:25)
[2017-06-17] MEDS: FUROSEMIDE 20 MG TAB PO (08:25)
[2017-06-17] MEDS: FAMOTIDINE 20 MG TAB PO ×2 (08:25→20:46)
[2017-06-17] MEDS: ASPIRIN (EC) 81 MG TAB PO (08:25)
[2017-06-17] MEDS: DOCUSATE SODIUM 100 MG CAP PO ×2 (08:25→20:46)
[2017-06-17] MEDS: MULTIVITAMINS THERAPEUTIC TAB PO (08:25)
[2017-06-17] MEDS: LOSARTAN 25 MG TAB PO ×2 (08:26→20:46)
[2017-06-17] MEDS: METOPROLOL (XL) 50 MG TAB PO (08:26)
[2017-06-17] MEDS: ATORVASTATIN 20 MG TAB PO (20:46)
[2017-06-17] MEDS: SENNA TAB PO (20:47)
[2017-06-18] MEDS: oxyCODONE 5 MG TAB PO ×3 (00:49→10:59)
[2017-06-18] MEDS: LEVOTHYROXINE 88 MCG TAB PO (06:13)
[2017-06-18 09:28] LABS: ANION GAP 14 (8-16); BLOOD UREA NITROGEN 15 mg/dl (7-20); CARBON DIOXIDE 27 mmol/L (21-31); CHLORIDE 107 mmol/L (97-110); CREATININE 1.11 mg/dl (0.44-1.00); GLUCOSE 116 mg/dl (70-220); MAGNESIUM 2.1 mg/dl (1.7-2.5); PHOSPHORUS 4.4 mg/dl (2.5-4.9); POTASSIUM 3.8 mmol/L (3.5-5.1); SODIUM 144 mmol/L (135-144)
[2017-06-18] MEDS: ENOXAPARIN 30 MG/0.3 ML SYG SC (09:28)
[2017-06-18] MEDS: FAMOTIDINE 20 MG TAB PO (09:30)
[2017-06-18] MEDS: ASPIRIN (EC) 81 MG TAB PO (09:30)
[2017-06-18] MEDS: METOPROLOL (XL) 50 MG TAB PO (09:30)
[2017-06-18] MEDS: DOCUSATE SODIUM 100 MG CAP PO (09:30)
[2017-06-18] MEDS: EZETIMIBE 10 MG TAB PO (09:30)
[2017-06-18] MEDS: TICAGRELOR 90 MG TABLET PO (09:32)
[2017-06-18] MEDS: MULTIVITAMINS THERAPEUTIC TAB PO (09:32)
[2017-06-18] MEDS: FUROSEMIDE 20 MG TAB PO (09:32)
[2017-06-18] MEDS: LOSARTAN 25 MG TAB PO (09:33)
[2017-06-18] MEDS: LIDOCAINE 5% PATCH TD (09:34)
== END 2017-06-18 12:35 | disposition home health service (06) | DRG 560 ==
LOC: VRC 19:27
PROC: F07Z5ZZ Bed Mobility Treatment (ICD-10-PCS; principal; 2017-06-06)
PROC: F08Z2ZZ Grooming/Personal Hygiene Treatment (ICD-10-PCS; 2017-06-06)
DX: S72.002D Fracture of unspecified part of neck of left femur, subsequent encounter for closed fracture with routine healing (principal); I13.0 Hypertensive heart and chronic kidney disease with heart failure and stage 1 through stage 4 chronic kidney disease, or unspecified chronic kidney disease; I50.22 Chronic systolic (congestive) heart failure; N17.9 Acute kidney failure, unspecified; G89.18 Other acute postprocedural pain; I25.2 Old myocardial infarction; I95.9 Hypotension, unspecified; E03.9 Hypothyroidism, unspecified; N18.9 Chronic kidney disease, unspecified; I50.9 Heart failure, unspecified; D64.9 Anemia, unspecified; K59.00 Constipation, unspecified; I25.10 Atherosclerotic heart disease of native coronary artery without angina pectoris; R00.2 Palpitations; I25.5 Ischemic cardiomyopathy; E87.6 Hypokalemia; Z79.82 Long term (current) use of aspirin; W18.30XD Fall on same level, unspecified, subsequent encounter
CPT/HCPCS: 71045; 80048; 80053; 81001; 83735; 84100; 85025; 85651; 87081; 87086; 93005; 93306; 97110; 97112; 97116; 97150; 97163; 97167; 97530; 97535; 97542